=== PATIENT | male | born 1975 | race Caucasian/White ===

== ENCOUNTER 2016-11-24 16:11 | Emergency (ER) | payer BC, OTHER ==
[~2016-11-24] VITALS: Ht 172.7 cm; Wt 112.0 kg
[~2016-11-24 16:11] MED LIST: CLON0.5T PO; DEXT30TA2 PO; FURO-69 PO; OMEP2.5S PO; TEST200V3 IM; VILA10TA PO
[2016-11-24] MEDS ORDERED: PHEN1CPM PO (16:37)
[2016-11-24] MEDS ORDERED: RIZA10TA PO (16:37)
[2016-11-24] MEDS ORDERED: IV NORMAL SALINE 1000ML BAG 1,000 ML IV ONE (17:45)
[2016-11-24] MEDS ORDERED: METOCLOPRAMIDE HCL 10 MG/2 ML VIAL. IV ONE ×2 (17:45→20:15)
[2016-11-24] MEDS ORDERED: DIPHENHYDRAMINE 50 MG/ML VIAL IVP ONE ×2 (17:45→20:15)
[2016-11-24 18:02] LABS: BASO # 0.1 x10^3/uL (0.0-0.2); BASO % 1 % (0-3); EOS % 1 % (0-3); HEMATOCRIT 43.4 % (39.0-53.0); HEMOGLOBIN 14.9 g/dL (13.0-17.5); LYMPH # 2.1 x10^3/uL (1.0-4.8); LYMPH % 27 % (24-48); MEAN CORPUSCULAR HEMOGLOBIN 31 pg (25-35); MEAN CORPUSCULAR HGB CONC 34 g/dL (31-37); MEAN CORPUSCULAR VOLUME 90 fL (79-100); MONO % 9 % (0-9); NEUT % 63 % (31-73); PLATELET COUNT 195 x10^3/uL (140-400); RED BLOOD COUNT 4.85 x10^6/uL (4.30-5.70); RED CELL DISTRIBUTION WIDTH 13.5 % (11.5-14.5); WHITE BLOOD COUNT 7.7 x10^3/uL (4.0-11.0)
[2016-11-24 18:15] VITALS: BP 120/76
[2016-11-24 18:16] LABS: CALCIUM 8.9 mg/dL (8.5-10.1); CREATININE 1.1 mg/dL (0.7-1.3); GFR 73.1; POTASSIUM 4.1 mmol/L (3.5-5.1)
--- NOTE | 2016-11-24 18:26 | RAD ---
PROCEDURE CT Head without contrast. HISTORY Migraine headaches with nausea, vomiting, and diarrhea, symptoms for [address] head was obtained. One or more of the following individualized dose reduction techniques were utilized for this exam: 1. Automated exposure control. 2. Adjustment of the mA and/or kV according to patient's size. 3. Use of iterative reconstruction technique. COMPARISON August 14, 2014. FINDINGS Ventricles and sulci are within normal limits for age. There is no acute intracranial hemorrhage or extra-axial fluid collection. Extra-axial calcification overlying the left frontal lobe could represent small calcified meningioma, stable. This could also represent some dural calcification. It measures 11 by 7 millimeters. There is no evidence of an acute infarct. There is no depressed skull fracture. There is right sphenoid mucosal thickening. IMPRESSION No acute intracranial findings. Electronically signed by: Gilbert Gan MD (Nov 24, 2016 18:24:48)
[2016-11-24] MEDS ORDERED: CONTRAST GIVEN MC PRN (19:15)
[2016-11-24] MEDS ORDERED: IOHEXOL 350 MG/ML 100ML VIAL. IV ONE (19:15)
--- NOTE | 2016-11-24 19:17 | PHYS DOC ---
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 His headache is sharp severe. He has a history of migraines and has been having initially similar symptoms which progressed into severe headache. It was not sudden in onset. He denies changes in vision or weakness or numbness unilaterally. It is worse with light and noise. It is improved by rest and silence. It is nonradiating. For approximately 24 hours his headache was exactly the same as his migraine headaches. Review of systems is negative for chest pain shortness of breath nausea vomiting fevers or chills. He denies numbness weakness or tingling. All other review of systems is negative unless otherwise noted in history of present illness. Review of Systems Review of Systems SEE ABOVE. Current Medications Current Medications Current Medications Medications (Trade) Dose Ordered Sig/Reynaldo Start Time Stop Time Status Last Admin Dose Admin Diphenhydramine HCl 25 mg 25 mg 1X ONCE 11/24/16 20:15 11/24/16 20:16 DC 11/24/16 20:11 25 MG Diphenhydramine HCl 50 mg 50 mg 1X ONCE 11/24/16 17:45 11/24/16 17:46 DC 11/24/16 17:53 50 MG Info (Do NOT chart on this entry -- for MONITORING) 1 each PRN DAILY PRN 11/24/16 19:15 11/24/16 21:00 DC Iohexol (Omnipaque 350 Mg/ml) 95 ml 1X ONCE 11/24/16 19:15 11/24/16 19:16 DC 11/24/16 19:28 95 ML Metoclopramide HCl (Reglan) 10 mg 1X ONCE 11/24/16 20:15 11/24/16 20:16 DC 11/24/16 20:11 10 MG Sodium Chloride (Iv Sodium Chloride 0.9% 500ml Bag) 500 ml @ 500 mls/hr 1X ONCE 11/24/16 20:15 11/24/16 21:00 DC 11/24/16 20:10 500 MLS/HR Sodium Chloride (Iv Sodium Chloride 0.9% 1000ml Bag) 1,000 ml @ 1,000 mls/hr 1X ONCE 11/24/16 17:45 11/24/16 18:44 DC 11/24/16 17:49 1,000 MLS/HR Allergies Allergies Allergies Coded Allergies Type Severity Reaction Last Updated Verified No Known Drug Allergies 11/24/16 No Physical Exam Physical Exam Constitutional: Well developed, well nourished, no acute distress, non-toxic appearance. [] HENT: Normocephalic, atraumatic, bilateral external ears normal, oropharynx moist, no oral exudates, nose normal. [] Eyes: PERRLA, EOMI, conjunctiva normal, no discharge. [] Neck: Normal range of motion, no tenderness, supple, no stridor. [] Cardiovascular:Heart rate regular rhythm, no murmur [] Lungs & Thorax: Bilateral breath sounds clear to auscultation [] Abdomen: Bowel sounds normal, soft, no tenderness, no masses, no pulsatile masses. [] Skin: Warm, dry, no erythema, no rash. [] Back: No tenderness, no CVA tenderness. [] Extremities: No tenderness, no cyanosis, no clubbing, ROM intact, no edema. [] Neurologic: Alert and oriented X 3, normal motor function, normal sensory function, no focal deficits noted. [] Psychologic: Affect normal, judgement normal, mood normal. [] Current Patient Data Vital Signs Vital Signs Date Time Temp Pulse Resp B/P Pulse Ox O2 Delivery O2 Flow Rate FiO2 11/24/16 18:15 81 120/76 98 11/24/16 16:26 98.1 20 Room Air 98.1 Lab Values Laboratory Tests Test 11/24/16 17:46 White Blood Count 7.7x10^3/uL (4.0-11.0) Red Blood Count 4.85x10^6/uL (4.30-5.70) Hemoglobin 14.9g/dL (13.0-17.5) Hematocrit 43.4% (39.0-53.0) Mean Corpuscular Volume 90fL (79-100) Mean Corpuscular Hemoglobin 31pg (25-35) Mean Corpuscular Hemoglobin Concent 34g/dL (31-37) Red Cell Distribution Width 13.5% (11.5-14.5) Platelet Count 195x10^3/uL (140-400) Neutrophils (%) (Auto) 63% (31-73) Lymphocytes (%) (Auto) 27% (24-48) Monocytes (%) (Auto) 9% (0-9) Eosinophils (%) (Auto) 1% (0-3) Basophils (%) (Auto) 1% (0-3) Neutrophils # (Auto) 4.8x10^3uL (1.8-7.7) Lymphocytes # (Auto) 2.1x10^3/uL (1.0-4.8) Monocytes # (Auto) 0.7x10^3/uL (0.0-1.1) Eosinophils # (Auto) 0.1x10^3/uL (0.0-0.7) Basophils # (Auto) 0.1x10^3/uL (0.0-0.2) Sodium Level 143mmol/L (136-145) Potassium Level 4.1mmol/L (3.5-5.1) Chloride Level 104mmol/L (98-107) Carbon Dioxide Level 32mmol/L (21-32) Anion Gap 7 (6-14) Blood Urea Nitrogen 18mg/dL (8-26) Creatinine 1.1mg/dL (0.7-1.3) Estimated GFR (Cockcroft-Gault) 73.1 Glucose Level 142mg/dL (70-99) H Calcium Level 8.9mg/dL (8.5-10.1) Laboratory Tests 11/24/16 17:46 Laboratory Tests 11/24/16 17:46 EKG EKG [] Radiology/Procedures Radiology/Procedures [] Course & Med Decision Making Course & Med Decision Making Pertinent Labs and Imaging studies reviewed. (See chart for details) [] 41-year-old male complaining of a headache today. He reported this headache was mildly different than his previous. It started out there is similar to his previous however over 24 hours progressed into a slightly different headache. IV established. Vital signs afebrile. Pertinent physical exam no meningeal symptoms. No focal neuro deficit present. Reglan and Benadryl along with fluids given which improved the patient's symptoms significantly. Head CT negative. CT angiography shows no evidence of aneurysm. I offered lumbar puncture to the patient which he respectfully declined. Patient was subsequent discharged home to follow up with PCP for further evaluation workup and care on an outpatient basis. Dragon Disclaimer Dragon Disclaimer This electronic medical record was generated, in whole or in part, using a voice recognition dictation system. Departure Departure Impression: Primary Impression: Other headache syndrome Disposition: HOME, SELF-CARE Condition: STABLE Referrals: THOMAS MUNOZ PA-C (PCP) Patient Instructions: General Headache Without Cause Additional Instructions: Thank you for allowing us to participate in your care today. Followup with your primary care physician in 3 days if your symptoms do not improve. If you do not have a primary care provider you can ask for a list of our primary care providers. Return to the emergency department you have any new or concerning findings. This should be evaluated by the primary care physician and any necessary consulting services for continued management within a few days after discharge. Return to emergency room if you have any new or concerning symptoms including but not limited to fever, chills, nausea, vomiting, intractable pain, any new rashes, chest pain, shortness of air, uncontrolled bleeding, difficulty breathing, and/or vision loss. MARIELENA VALDEZ MD Nov 24, 2016 19:17
--- NOTE | 2016-11-24 19:58 | RAD ---
PROCEDURE CT angiogram head and neck IMPRESSION Preliminary report only. Unable to send all images. Full report in morning. 1. No significant common or internal carotid artery stenosis. Tortuosity of the internal carotid arteries. 2. Right dominant vertebral artery. Left vertebral artery diminutive, does supply the basilar. 3. No intracranial stenosis or aneurysm. Hypoplastic right A1 segment. Electronically signed by: Gilbert Gan MD (Nov 24, 2016 19:56:41)
[2016-11-24] MEDS ORDERED: IV NORMAL SALINE 500ML BAG 500 ML IV ONE (20:15)
== END 2016-11-24 21:00 | disposition home or self-care (01) ==
LOC: ER 16:11
DX: G44.89 Other headache syndrome (principal); I10 Essential (primary) hypertension; G43.909 Migraine, unspecified, not intractable, without status migrainosus
CPT/HCPCS: 36415; 70450; 70496; 70498; 80048; 85027; 96361; 96374; 96375; 96376; 99285; J1200; J2765; J7030; J7040; Q9967

== ENCOUNTER 2016-12-04 16:10 | Emergency (ER) | payer OTHER ==
[~2016-12-04] VITALS: Ht 172.7 cm; Wt 111.1 kg
[~2016-12-04 16:10] MED LIST changes: +PHEN1CPM PO; +RIZA10TA PO
[2016-12-04] MEDS ORDERED: KETOROLAC TROMETHAMINE 30 MG/ML SYRINGE. IV ONE (17:30)
[2016-12-04] MEDS ORDERED: SUMATRIPTAN 6 MG/0.5 ML VIAL. SQ ONE (17:30)
[2016-12-04] MEDS ORDERED: IV NORMAL SALINE 1000ML BAG 1,000 ML IV ONE (17:30)
[2016-12-04] MEDS ORDERED: METOCLOPRAMIDE HCL 10 MG/2 ML VIAL. IV ONE (17:30)
[2016-12-04] MEDS ORDERED: methylPREDNISolone SOD SUCC PF 125 MG/2 ML VIAL. IV ONE (17:30)
--- NOTE | 2016-12-04 17:34 | PHYS DOC ---
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 Patient was seen in this emergency room in 10 days ago for a headache and received Reglan and Benadryl for treatment. Patient had moderate relief with those medications but left due to increased anxiety. Patient states he's had this same headache persistent since his last ED visit with no episodes of resolution. Patient denies any fevers or chills. Positive photophobia. No neck stiffness. Mild nausea. Patient has a 10 year history of headaches and has been worked up by a neurologist and has had multiple MRIs related to his headaches. Patient has a known pituitary tumor that is being followed by serial MRIs. No history of head trauma. Patient states last June he had his gallbladder removed and following that his headache medications were modified. Review of Systems Review of Systems Constitutional: Denies fever or chills Eyes: Denies change in visual acuity, redness, or eye pain HENT: Denies nasal congestion or sore throat Respiratory: Denies cough or shortness of breath Cardiovascular: No chest pain or palpitations GI: Denies abdominal pain, bloody stools or diarrhea. Positive nausea, vomiting, : Denies dysuria or hematuria Musculoskeletal: Denies back pain or joint pain Integument: Denies rash or skin lesions Neurologic: Denies focal weakness or sensory changes . Positive headache, Endocrine: Denies polyuria or polydipsia Current Medications Current Medications Current Medications Medications (Trade) Dose Ordered Sig/Reynaldo Start Time Stop Time Status Last Admin Dose Admin Ketorolac Tromethamine (Toradol) 30 mg 1X ONCE 12/04/16 17:30 12/04/16 17:33 DC 12/04/16 17:44 30 MG Methylprednisolone Sodium Succinate (Solu-Medrol 125mg Vial) 125 mg 1X ONCE 12/04/16 17:30 12/04/16 17:33 DC 12/04/16 17:46 125 MG Metoclopramide HCl (Reglan) 10 mg 1X ONCE 12/04/16 17:30 12/04/16 17:33 DC 3/30/17 17:48 10 MG Sodium Chloride (Iv Sodium Chloride 0.9% 1000ml Bag) 1,000 ml @ 1,000 mls/hr 1X ONCE 12/04/16 17:30 12/04/16 18:29 DC 12/04/16 17:42 1,000 MLS/HR Sumatriptan Succinate 6 mg 6 mg 1X ONCE 12/04/16 17:30 12/04/16 17:33 DC 12/04/16 17:53 6 MG Allergies Allergies Allergies Coded Allergies Type Severity Reaction Last Updated Verified No Known Drug Allergies 11/24/16 No Physical Exam Physical Exam Constitutional: Well developed, well nourished, mild acute distress, non-toxic appearance. HENT: Normocephalic, atraumatic, oropharynx moist, no oral exudates, nose normal. Eyes: PERRLA, EOMI, conjunctiva normal, no discharge. Normal funduscopic exam Neck: Normal range of motion, no tenderness, supple, no stridor. Cardiovascular:Heart rate regular rhythm, no murmur Lungs & Thorax: Bilateral breath sounds clear to auscultation Abdomen: Bowel sounds normal, soft, no tenderness, no masses, no pulsatile masses. Skin: Warm, dry, no erythema, no rash. Extremities: No tenderness, no cyanosis, no edema. Neurologic: Alert and oriented X 3, normal motor function, normal sensory function, no focal deficits noted. Psychologic: Affect normal, judgement normal, mood normal. Current Patient Data Vital Signs Vital Signs Date Time Temp Pulse Resp B/P Pulse Ox O2 Delivery O2 Flow Rate FiO2 12/04/16 19:00 86 21 117/84 92 Room Air 12/04/16 16:32 97.9 97.9 EKG EKG [] Radiology/Procedures Radiology/Procedures [] Course & Med Decision Making Course & Med Decision Making Pertinent Labs and Imaging studies reviewed. (See chart for details) [] Dragon Disclaimer Dragon Disclaimer This electronic medical record was generated, in whole or in part, using a voice recognition dictation system. Departure Departure Impression: Primary Impression: Migraine Disposition: 01 HOME, SELF-CARE Condition: IMPROVED Referrals: THOMAS MUNOZ PA-C (PCP) Patient Instructions: Migraine Headache Scripts Ketorolac Tromethamine 10 Mg Tablet1 Tab PO TID #15 TAB Prov:COLARIC,YENNI B MD 12/04/16 Problem Qualifiers Primary Impression: Migraine Migraine type: without aura Status migrainosus presence: without status migrainosus Intractability: not intractable Qualified Code: G43.009 - Migraine without aura, not intractable, without status migrainosus YENNI ROSENTHAL MD Dec 04, 2016 17:34
[2016-12-04] MEDS ORDERED: KETO10TA PO (18:53)
[2016-12-04 19:00] VITALS: BP 117/84
== END 2016-12-04 19:06 | disposition home or self-care (01) ==
LOC: ER 16:10
DX: G43.909 Migraine, unspecified, not intractable, without status migrainosus (principal); I10 Essential (primary) hypertension; F41.9 Anxiety disorder, unspecified
CPT/HCPCS: 96361; 96372; 96374; 96375; 99284; J1885; J2765; J2930; J3030; J7030

== ENCOUNTER → 2017-02-03 | Outpatient (CLI) | payer OTHER ==
[~2017-02-03] MED LIST changes: +GADOBUTROL 10 MMOL/10 ML VIAL IV ONE; +KETO10TA PO
--- NOTE | 2017-02-03 11:31 | RAD ---
EXAM: Brain and pituitary MRI with and without contrast. HISTORY: Pituitary tumor follow-up. Headaches. TECHNIQUE: Multiplanar, multisequence magnetic resonance imaging of the brain pituitary was performed prior to and following the administration of 10 cc Gadavist intravenous contrast. COMPARISON: 11/24/2016. FINDINGS: The exam is limited due to motion. There is no restricted diffusion to suggest acute or subacute infarction. There is no susceptibility effect to suggest hemorrhage. There is no mass effect or midline shift. There is no hydrocephalus. No suspicious white matter lesion is seen. The orbits, paranasal sinuses and mastoid air cells are unremarkable. There is a hypoplastic distal left vertebral artery. There is an enhancing dural based lesion within the ventral suprasellar space. This measures 9 mm craniocaudally by 6 mm anteroposteriorly by 9 mm transversely. The sella is normal in size. No pituitary parenchymal lesion is seen. The infundibulum is normal in caliber and position. There is no clear deviation of the optic chiasm. No additional enhancing lesion is seen. IMPRESSION: 1. 9 x 9 x 6 mm enhancing dural based lesion within the ventral suprasellar region. The location and configuration of this lesion favors a meningioma rather than adenoma. This has been reportedly described on prior imaging studies. However, no prior MRIs available to assess for interval change. An addendum to this report can be submitted if the prior study becomes available. 2. Otherwise, unremarkable brain MRI. The exam is slightly limited due to motion. Electronically signed by: Ronel Marcano MD (02/03/2017 11:28 AM)
== END | disposition home or self-care (01) ==
LOC: MRI 09:42
PROVIDERS: ATTEND Physician Assistant Medical
DX: D32.0 Benign neoplasm of cerebral meninges (principal)
CPT/HCPCS: 70553; A9585

== ENCOUNTER → 2017-02-04 | Outpatient (CLI) | payer OTHER ==
[~2017-02-04] MED LIST changes: -GADOBUTROL 10 MMOL/10 ML VIAL IV ONE
--- NOTE | 2017-02-04 14:54 | KCIC ---
MRI study of the right shoulder without contrast Clinical indications: Right shoulder pain and decreased range of motion. History of injury in May 2016 and again a few days ago throwing a baseball. No surgical history in this area. TECHNIQUE: Noncontrast MRI sequences of the right shoulder were performed in all 3 planes. FINDINGS: There is increased signal within the supraspinatus tendon and infraspinatus tendon consistent with tendinosis. No complete rotator cuff tear is seen. There is a high-grade partial articular surface tear of the anterior aspect of the lateral portion of the supraspinatus tendon at it's attachment to the footplate of the greater tubercle. There is no fluid within the subacromial or subdeltoid bursa. The subscapularis tendon and transverse ligament are intact. The tendon of the long head of the biceps is intact. No muscle atrophy is seen. There is mild bone marrow edema around the AC joint consistent with mild primary degenerative osteoarthritis and there is mild spurring of this joint compartment. A type III acromial process is seen. These findings may impinge the acromial humeral space. There is mild chronic cystic change of the posterior lateral aspect of the humeral head secondary to chronic impingement. No bone contusion or marrow infiltrative process or fracture is seen. There is mild primary degenerative osteoarthritis of the glenohumeral joint. Small joint effusion is seen. The glenoid labrum is intact and no paralabral ganglion cyst or spinoglenoid notch ganglion cyst is seen. IMPRESSION: High-grade partial articular surface tear of the supraspinatus tendon at the footplate attachment of the greater tubercle. Impingement of the acromial humeral space as discussed above. No subdeltoid or subacromial bursitis is seen. Electronically signed by: James Jaimes MD (02/04/2017 2:51 PM)
== END | disposition home or self-care (01) ==
LOC: KCIC MRI 13:11
PROVIDERS: ATTEND Physician Assistant Medical
DX: S46.001A Unspecified injury of muscle(s) and tendon(s) of the rotator cuff of right shoulder, initial encounter (principal); X58.XXXA Exposure to other specified factors, initial encounter; Y93.89 Activity, other specified; Y92.89 Other specified places as the place of occurrence of the external cause; Y99.8 Other external cause status
CPT/HCPCS: 73221

== ENCOUNTER 2017-02-13 18:56 | Emergency (ER) | payer OTHER ==
[~2017-02-13] VITALS: Ht 170.2 cm; Wt 112.0 kg
--- NOTE | 2017-02-13 19:14 | PHYS DOC ---
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 He states he has a rotator cuff injuries following up with a surgeon but his primary care physician we'll give him any pain meds. He states that the MRI that he brought with him shows a tear on the pains began worse after he reinjured it a few days ago on the ball with his son. He has a complains of a migraine headache of which he takes sumatriptan for that's been getting worse. He states he had an MRI that shows a he has a lesion on his brain. He brings both of these reports of the MRIs with him. They were just done on February 04, 2017. He states he's been feeling nauseated and his headache for last 4 days. He states this is typical headache he does have some visual changes on the right lateral aspect of his eye and sensitivity to light that's also been going on for over the last 4 days. He denies any vomiting, fevers, neck stiffness. He states he's been here before for this migraine and he had Reglan and Benadryl which he did not tolerate well. He states he has anxiety and claustrophobia and seems a Reglan made it worse. Review of Systems Review of Systems Constitutional: Denies fever or chills [] Eyes: Denies change in visual acuity, redness, or eye pain [] HENT: Denies nasal congestion or sore throat [] Respiratory: Denies cough or shortness of breath [] Cardiovascular: No additional information not addressed in HPI [] GI: Denies abdominal pain, nausea, vomiting, bloody stools or diarrhea [] : Denies dysuria or hematuria [] Musculoskeletal: Denies back pain, positive for joint pain [] Integument: Denies rash or skin lesions [] Neurologic: Denies focal weakness or sensory changes, positive for headache. Endocrine: Denies polyuria or polydipsia [] Current Medications Current Medications Current Medications Medications (Trade) Dose Ordered Sig/Reynaldo Start Time Stop Time Status Last Admin Dose Admin Diphenhydramine HCl (Benadryl) 25 mg 1X ONCE 02/13/17 19:45 02/13/17 19:46 DC 02/13/17 20:16 25 MG Ketorolac Tromethamine (Toradol) 30 mg 1X ONCE 02/13/17 20:45 02/13/17 20:46 DC 02/13/17 21:10 30 MG Promethazine HCl 25 mg/Sodium Chloride 51 ml @ 101 mls/hr 1X ONCE 02/13/17 19:45 02/13/17 20:15 DC 02/13/17 20:15 101 MLS/HR Sodium Chloride 1,000 ml @ 1,000 mls/hr 1X ONCE 02/13/17 19:45 02/13/17 20:44 DC 02/13/17 20:15 1,000 MLS/HR Allergies Allergies Allergies Coded Allergies Type Severity Reaction Last Updated Verified No Known Drug Allergies 11/24/16 No Physical Exam Physical Exam Constitutional: Well developed, well nourished, no acute distress, non-toxic appearance. [] HENT: Normocephalic, atraumatic, bilateral external ears normal, oropharynx moist, no oral exudates, nose normal. [] Eyes: PERRLA, EOMI, conjunctiva normal, no discharge. [] Neck: Normal range of motion, no tenderness, supple, no stridor. [] Cardiovascular:Heart rate regular rhythm, no murmur [] Lungs & Thorax: Bilateral breath sounds clear to auscultation [] Abdomen: Bowel sounds normal, soft, no tenderness, no masses, no pulsatile masses. [] Skin: Warm, dry, no erythema, no rash. [] Back: No tenderness, no CVA tenderness. [] Extremities: No tenderness, no cyanosis, no clubbing, ROM intact, no edema. [] Neurologic: Alert and oriented X 3, normal motor function, normal sensory function, no focal deficits noted. [] Psychologic: Affect normal, judgement normal, mood normal. [] Current Patient Data Vital Signs Vital Signs Date Time Temp Pulse Resp B/P (MAP) Pulse Ox O2 Delivery O2 Flow Rate FiO2 02/13/17 21:53 60 16 120/75 (90) 97 02/13/17 19:14 98.3 Room Air 98.3 EKG EKG [] Radiology/Procedures Radiology/Procedures [] Impressions: Migraine headache Right shoulder pain Course & Med Decision Making Course & Med Decision Making Pertinent Labs and Imaging studies reviewed. (See chart for details) Patient is being checked out to Dr. Noriega in stable condition this time. Final disposition to Dr. Noriega. Marielena Noriega MD documentation: 41 yo M presented to the ED with a headache. Pts triage vital signs, afebrile. nl hr. has a normal neurologic exam on my examination. The patient was signed out to me to finish his IV fluids and pain medication with likely discharge. Patient does not have neck stiffness or meningeal signs. Negative Brudzinski sign. Negative Kernig sign. Neuro exam: Mental status: Awake oriented and alert x3 Cranial nerves: Extraocular movements intact, eyebrows harry bilaterally smile symmetric, uvula elevation, shoulder shrug intact, tongue protrusion normal Sensation: equal and normal in all extremities Strength: 5/5 in upper and lower extremities bilaterally On reexamination, the patient's pain and improved. The patient was then discharged home to follow-up with PCP in 2-3 days. The patient was then discharged home in stable condition to follow up with their primary care physician over the next 2-3 days. They were to return if their symptoms worsened or if they were concerned for any reason. [id number] discharge instructions and return precautions were given. Patient's questions were answered to their satisfaction. The patient does have an MRI of his brain that shows a possible meningioma. I recommended he follow up with her neurologist within the next 4-7 days for further evaluation of this finding. During the discharge process, the patient became upset because he was desiring opioid medications for his headache. I politely explained to him that I do not use opioid medications for headache as they worsen patient's headache in a large proportion of patients. He became very angry and verbally abusive with staff and had to be escorted by security out of the emergency department. Yueon Disclaimer Dragon Disclaimer This electronic medical record was generated, in whole or in part, using a voice recognition dictation system. Departure Departure Impression: Primary Impression: Other headache syndrome Disposition: HOME, SELF-CARE Condition: STABLE Referrals: THOMAS MUNOZ PA-C (PCP) Patient Instructions: General Headache Without Cause, [id number] Additional Instructions: Thank you for allowing us to participate in your care today. Followup with your primary care physician in 3 days if your symptoms do not improve. If you do not have a primary care provider you can ask for a list of our primary care providers. Return to the emergency department you have any new or concerning findings. This should be evaluated by the primary care physician and any necessary consulting services for continued management within a few days after discharge. Return to emergency room if you have any new or concerning symptoms including but not limited to fever, chills, nausea, vomiting, intractable pain, any new rashes, chest pain, shortness of air, uncontrolled bleeding, difficulty breathing, and/or vision loss. RACIEL BOYD MD Feb 13, 2017 19:14 MARIELENA NORIEGA MD Feb 13, 2017 21:26
[2017-02-13] MEDS ORDERED: PROMETHAZINE 25 MG in IV NORMAL SALINE 50ML 50 ML IV ONE (19:45)
[2017-02-13] MEDS ORDERED: diphenhydrAMINE 50 MG/ML VIAL IVP ONE (19:45)
[2017-02-13] MEDS ORDERED: IV NORMAL SALINE 1000ML BAG 1,000 ML IV ONE (19:45)
[2017-02-13] MEDS ORDERED: KETOROLAC TROMETHAMINE 30 MG/ML INJ. IV ONE (20:45)
[2017-02-13 21:53] VITALS: BP 120/75
== END 2017-02-13 21:57 | disposition home or self-care (01) ==
LOC: ER 18:56
DX: G44.89 Other headache syndrome (principal); M25.511 Pain in right shoulder; I10 Essential (primary) hypertension; Z90.49 Acquired absence of other specified parts of digestive tract; G43.909 Migraine, unspecified, not intractable, without status migrainosus
CPT/HCPCS: 96365; 96375; 99284; J1200; J1885; J2550; J7030

== ENCOUNTER → 2018-01-13 | Outpatient (CLI) | payer OTHER | END | disposition home or self-care (01) | LOC: KCIC 13:43 | DX: R05 Cough (principal) | CPT/HCPCS: 71046 ==

== ENCOUNTER → 2018-02-19 | Outpatient (CLI) | payer OTHER | END | disposition home or self-care (01) | LOC: NM 09:16 | DX: K30 Functional dyspepsia (principal) | CPT/HCPCS: 78264; A9541 ==

== ENCOUNTER → 2018-05-04 | Outpatient (CLI) | payer OTHER ==
[2018-01-20 11:00] VITALS: BP 120/83
[~2018-05-04] MED LIST changes: +AMOX1TAB61 PO; +AZIT250T6 PO; +BUSP10TA PO; +BUTA1CAP31 PO; +CELE200C PO; +COLE1TAB2 PO; +CONTRAST GIVEN. MC PRN; +CYCL10TA2 PO; +DICY20TA3 PO; +DULA0.75 SQ; +DULO60CA6 PO; +ESOM40CA PO; +GABA-586 PO; +HYDR-971 PO; +IOHEXOL 300 MG/ML 100ML VIAL. IV ONE; +IOPAMIDOL 370 76% 100 ML VIAL. IV ONE; -OMEP2.5S PO; +OMEP2.5S2 PO; +POTA10TA12 PO; +PRAZ1CAP2 PO; +PROP20TA PO; +SUCR1TAB PO; +TOPI100T8 PO; +TRAZ-86 PO
--- NOTE | 2018-05-04 09:25 | KCIC ---
CT pelvis with contrast dated 05/04/2018. Comparison made to 11/24/2017. CLINICAL INDICATION: Bilateral inguinal pain. TECHNIQUE: Contiguous axial imaging the pelvis performed following the intravenous administration of 95 cc Omnipaque 300. One or more of the following individualized dose reduction techniques were utilized for this examination: 1. Automated exposure control 2. Adjustment of the mA and/or kV according to patient size 3. Use of iterative reconstruction technique. FINDINGS: There is some fatty dilation of the bilateral inguinal ring, unchanged from prior study. No definite hernia defect. There are couple nonpathologically enlarged lymph nodes in the bilateral external iliac chain and bilateral inguinal region, similar to prior study. The vasculature at the bilateral groin are patent. Minimal scattered atherosclerotic calcifications. Urinary bladder is nondistended. Prostate gland normal in size. No free pelvic fluid. Distal GI tract unremarkable. Bone windows show no acute findings. IMPRESSION: No acute abnormality pelvis. Electronically signed by: Chris Loera MD (05/04/2018 9:22 AM) [facility]
== END | disposition home or self-care (01) ==
LOC: KCIC CT 08:17
PROVIDERS: ATTEND Surgery
DX: I70.0 Atherosclerosis of aorta (principal); I10 Essential (primary) hypertension; G43.909 Migraine, unspecified, not intractable, without status migrainosus; E11.9 Type 2 diabetes mellitus without complications; K21.9 Gastro-esophageal reflux disease without esophagitis; J45.909 Unspecified asthma, uncomplicated; R60.0 Localized edema; Z90.49 Acquired absence of other specified parts of digestive tract; Z82.49 Family history of ischemic heart disease and other diseases of the circulatory system; Z82.0 Family history of epilepsy and other diseases of the nervous system; Z83.3 Family history of diabetes mellitus; Z82.5 Family history of asthma and other chronic lower respiratory diseases
CPT/HCPCS: 72193; 82565; Q9967

== ENCOUNTER 2021-05-07 16:03 | Observation (INO) | payer OTHER ==
[~2021-05-07] VITALS: Ht 170.2 cm; Wt 105.3 kg
[~2021-05-07 16:03] MED LIST changes: -CONTRAST GIVEN. MC PRN; -GABA-586 PO; +GABA300C18 PO; +HYDR-3164 PO; -HYDR-971 PO; -IOHEXOL 300 MG/ML 100ML VIAL. IV ONE; -IOPAMIDOL 370 76% 100 ML VIAL. IV ONE; +TRAZ-123 PO; -TRAZ-86 PO
[2021-05-07] MEDS ORDERED: ASPIRIN CHEWABLE 81 MG TABLET. PO ONE (16:30)
--- NOTE | 2021-05-07 16:35 | ED.ADGEN ---
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 Patient states last night however his pain became significantly worse. He describes the sensation of an elephant sitting on his chest. Patient reports he was doing some laundry and when doing so he felt extreme and chest discomfort as well as lightheaded. Patient states during this time as well he is become more fatigued with any kind of exertion. Patient visited with his primary care physician today and was referred to the emergency department for further evaluation. Despite this, the patient denies any nausea or fevers. He further denies any history of cough or shortness of air at rest. Patient states he has not had the coronavirus vaccination series. He is awake, alert and nontoxic- appearing. Review of Systems: Review of Systems: Constitutional: Denies fever or chills. [] Eyes: Denies change in visual acuity. [] HENT: Denies nasal congestion or sore throat. [] Respiratory: Denies cough or shortness of breath. [] Cardiovascular: Reports chest pain as well as dyspnea with exertion. [] GI: Denies abdominal pain, nausea, vomiting, bloody stools or diarrhea. [] : Denies dysuria. [] Musculoskeletal: Denies back pain or joint pain. [] Integument: Denies rash. [] Neurologic: Denies headache, focal weakness or sensory changes. [] Endocrine: Denies polyuria or polydipsia. [] Lymphatic: Denies swollen glands. [] Psychiatric: Denies depression or anxiety. [] Current Medications: Current Medications Medications (Trade) Dose Ordered Sig/Reynaldo Start Time Stop Time Status Last Admin Dose Admin Aspirin (Aspirin Chewable) 324 mg 1X ONCE 05/07/21 16:30 05/07/21 16:31 DC 05/07/21 16:47 324 MG Info (CONTRAST GIVEN -- Rx MONITORING) 1 each PRN DAILY PRN 05/07/21 18:00 05/09/21 17:59 Iohexol (Omnipaque 350 Mg/ml) 100 ml 1X ONCE 05/07/21 17:45 05/07/21 17:48 DC 05/07/21 17:48 100 ML Allergies: Allergies: Allergies Coded Allergies Type Severity Reaction Last Updated Verified sumatriptan Allergy Intermediate body pain 05/07/21 Yes morphine Allergy Mild itching 05/07/21 Yes ketorolac Allergy Unknown 05/07/21 Yes Physical Exam: PE: Constitutional: Well developed, well nourished, no acute distress, non-toxic appearance. [] HENT: Normocephalic, atraumatic, bilateral external ears normal, oropharynx moist, no oral exudates, nose normal. [] Eyes: PERRLA, EOMI, conjunctiva normal, no discharge. [] Neck: Normal range of motion, no tenderness, supple, no stridor. [] Cardiovascular:Heart rate regular rhythm, no murmur [] Lungs & Thorax: Bilateral breath sounds clear to auscultation [] Abdomen: Bowel sounds normal, soft, no tenderness, no masses, no pulsatile mass es. [] Skin: Warm, dry, no erythema, no rash. [] Back: No tenderness, no CVA tenderness. [] Extremities: No tenderness, no cyanosis, no clubbing, ROM intact, no edema. [] Neurologic: Alert and oriented X 3, normal motor function, normal sensory function, no focal deficits noted. [] Psychologic: Affect normal, judgement normal, mood normal. [] Current Patient Data: Labs: Laboratory Tests Test 05/07/21 17:05 White Blood Count 6.2 x10^3/uL (4.0-11.0) Red Blood Count 5.16 x10^6/uL (4.30-5.70) Hemoglobin 16.1 g/dL (13.0-17.5) Hematocrit 46.4 % (39.0-53.0) Mean Corpuscular Volume 90 fL (79-100) Mean Corpuscular Hemoglobin 31 pg (25-35) Mean Corpuscular Hemoglobin Concent 35 g/dL (31-37) Red Cell Distribution Width 13.1 % (11.5-14.5) Platelet Count 153 x10^3/uL (140-400) Neutrophils (%) (Auto) 59 % (31-73) Lymphocytes (%) (Auto) 29 % (24-48) Monocytes (%) (Auto) 8 % (0-9) Eosinophils (%) (Auto) 3 % (0-3) Basophils (%) (Auto) 1 % (0-3) Neutrophils # (Auto) 3.7 x10^3/uL (1.8-7.7) Lymphocytes # (Auto) 1.8 x10^3/uL (1.0-4.8) Monocytes # (Auto) 0.5 x10^3/uL (0.0-1.1) Eosinophils # (Auto) 0.2 x10^3/uL (0.0-0.7) Basophils # (Auto) 0.1 x10^3/uL (0.0-0.2) Sodium Level 139 mmol/L (136-145) Potassium Level 4.0 mmol/L (3.5-5.1) Chloride Level 102 mmol/L (98-107) Carbon Dioxide Level 26 mmol/L (21-32) Anion Gap 11 (6-14) Blood Urea Nitrogen 12 mg/dL (8-26) Creatinine 1.0 mg/dL (0.7-1.3) Estimated GFR (Cockcroft-Gault) 80.1 BUN/Creatinine Ratio 12 (6-20) Glucose Level 293 mg/dL (70-99) H Calcium Level 9.3 mg/dL (8.5-10.1) Total Bilirubin 0.7 mg/dL (0.2-1.0) Aspartate Amino Transferase (AST) 9 U/L (15-37) L Alanine Aminotransferase (ALT) 25 U/L (16-63) Alkaline Phosphatase 84 U/L (46-116) Troponin I Quantitative < 0.017 ng/mL (0.000-0.055) MW-Elo-F-Type Natriuretic Peptide 21 pg/mL (0-124) Total Protein 6.6 g/dL (6.4-8.2) Albumin 3.6 g/dL (3.4-5.0) Albumin/Globulin Ratio 1.2 (1.0-1.7) Lipase 66 U/L (73-393) L Laboratory Tests 05/07/21 17:05 Laboratory Tests 05/07/21 17:05 Vital Signs: Vital Signs Date Time Temp Pulse Resp B/P (MAP) Pulse Ox O2 Delivery O2 Flow Rate FiO2 05/07/21 16:12 98.4 68 16 128/70 (95) 95 Room Air 98.4 EKG: EKG: EKG was obtained 1614 hrs. revealed a normal sinus rhythm with a ventricular rate of 74 bpm. There are no acute ST/T wave changes to denote ischemia. This is an otherwise normal EKG. Heart Score: C/O Chest Pain: Yes HEART Score for Chest Pain: HEART Score for Chest Pain Response (Comments) Value History Moderately Suspicious 1 ECG Normal 0 Age >45 - < 65 1 Risk Factors >3 Risk Factors or Hx CAD 2 Troponin < Normal Limit 0 Total 4 Risk Factors: Risk Factors: DM, Current or recent (<one month) smoker, HTN, HLP, family history of CAD, obesity. Risk Scores: Score 0 - 3: 2.5% MACE over next 6 weeks - Discharge Home Score 4 - 6: 20.3% MACE over next 6 weeks - Admit for Clinical Observation Score 7 - 10: 72.7% MACE over next 6 weeks - Early Invasive Strategies Radiology/Procedures: Radiology/Procedures: [] Impression: [facility] [address] [place], [place] [id number] IMAGING REPORT Signed PATIENT: GINA VALDEZ ACCOUNT: [id number] : 1975 LOCATION: ER AGE: 45 SEX: M EXAM STATUS: REG ER ORD. PHYSICIAN: JOSH JORDAN DO REASON: Pain PROCEDURE: PORTABLE CHEST 1V INDICATION: Reason: Pain / Spl. Instructions: / History: COMPARISON: January 2018 FINDINGS: Single view of chest obtained. Shunt coursing down the right side of the chest. Cardiac silhouette is similar to prior examination. There is some mild interstitial and groundglass opacities most prominent at the right lower lung IMPRESSION: * Mild interstitial and groundglass opacity most prominent at the right lower lung. Could be from causes such as interstitial infiltrate or asymmetric pulmonary vascular congestion. Electronically signed by: Stephani Carbajal MD (05/07/2021 4:58 PM) [id number] DICTATED and SIGNED BY: STEPHANI CARBAJAL MD DATE: 05/07/21 [id number] 0 Course & Med Decision Making: Course & Med Decision Making Pertinent Labs and Imaging studies reviewed. (See chart for details) The patient remains awake, alert and in no acute distress. I have reviewed the lab work as well as the imaging with the patient. The patient expresses concern about a possible blood clot with his ongoing breathing issues. As such a CT of the chest has been ordered to assess for the possibility of a pulmonary embolus. Additionally the patient is a person under investigation for coronavirus given that he has not had the vaccination nor will he take it. Currently the patient is awaiting CT imaging. Care will be transitioned to Dr. Lockhart for further management. update: Received this patient in signout. CTA was negative for pulmonary embolus. It did show a 2 mm Maulik nodule that I discussed with the patient. He does have a significant smoking history, so he is aware of the need for follow-up CT in 12 months. He is expressing a month of exertional chest pressure, but has recently had a lower threshold to cause pain. Is often relieved with rest. He has risk factors of DM, obesity, and smoking history. Fortunately, his troponin is negative, and his EKG is nonischemic. Calculate a heart score of 4. I discussed options of close outpatient follow-up for consideration of stress testing, but he states that it would be likely a month before he could see his doctor at the [facility]. I will discuss with cardiology and hospitalist about admission for further chest pain work-up. 1830 Mireya Disclaimer: Mireya Disclaimer: This electronic medical record was generated, in whole or in part, using a voice recognition dictation system. Departure Departure Impression: Primary Impression: Dyspnea on exertion Additional Impressions: Hyperglycemia due to diabetes mellitus Person under investigation for COVID-19 Exertional chest pain Disposition: ADMITTED INPATIENT Admitting Physician: TERELL ([place]) Condition: STABLE Referrals: THOMAS MUNOZ PA-C (PCP) Problem Qualifiers JOSH JORDAN DO May 07, 2021 16:35 FELIPA LOCKHART MD May 07, 2021 18:32
--- NOTE | 2021-05-07 17:00 | RAD ---
INDICATION: Reason: Pain / Spl. Instructions: / History: COMPARISON: January 2018 FINDINGS: Single view of chest obtained. Shunt coursing down the right side of the chest. Cardiac silhouette is similar to prior examination. There is some mild interstitial and groundglass opacities most prominent at the right lower lung IMPRESSION: * Mild interstitial and groundglass opacity most prominent at the right lower lung. Could be from ca uses such as interstitial infiltrate or asymmetric pulmonary vascular congestion. Electronically signed by: Wil Kan MD (05/07/2021 4:58 PM) [id number]
[2021-05-07 17:17] LABS: BASO # 0.1 x10^3/uL (0.0-0.2); BASO % 1 % (0-3); EOS # 0.2 x10^3/uL (0.0-0.7); EOS % 3 % (0-3); HEMATOCRIT 46.4 % (39.0-53.0); HEMOGLOBIN 16.1 g/dL (13.0-17.5); LYMPH # 1.8 x10^3/uL (1.0-4.8); LYMPH % 29 % (24-48); MEAN CORPUSCULAR HEMOGLOBIN 31 pg (25-35); MEAN CORPUSCULAR HGB CONC 35 g/dL (31-37); MEAN CORPUSCULAR VOLUME 90 fL (79-100); MONO # 0.5 x10^3/uL (0.0-1.1); MONO % 8 % (0-9); NEUT # 3.7 x10^3/uL (1.8-7.7); NEUT % 59 % (31-73); PLATELET COUNT 153 x10^3/uL (140-400); RED BLOOD COUNT 5.16 x10^6/uL (4.30-5.70); RED CELL DISTRIBUTION WIDTH 13.1 % (11.5-14.5); WHITE BLOOD COUNT 6.2 x10^3/uL (4.0-11.0)
[2021-05-07 17:26] LABS: CALCIUM 9.3 mg/dL (8.5-10.1); GFR 80.1
[2021-05-07 17:32] LABS: ALBUMIN 3.6 g/dL (3.4-5.0); ALBUMIN/GLOBULIN RATIO 1.2 (1.0-1.7); TOTAL BILIRUBIN 0.7 mg/dL (0.2-1.0); TOTAL PROTEIN 6.6 g/dL (6.4-8.2)
[2021-05-07] MEDS ORDERED: IOHEXOL 350 MG/ML 100 ML VIAL. IV ONE (17:45)
--- NOTE | 2021-05-07 17:58 | EKG ---
[facility] [address] [place] [address] Test Date: 2021-05-07 Test Time: 16:14:31 Pat Name: GINA VALDEZ Department: Room: Gender: M Interpretive Naturalist: : 1975 Requested By: JOSH JORDAN Order Number: [id number] Reading MD: Measurements Intervals [place] Rate: 74 P: -6 VA: 178 QRS: 12 QRSD: 78 T: 16 QT: 362 QTc: 407 Interpretive Statements SINUS RHYTHM NORMAL ECG RI6.01 Compared to ECG 05/07/2021 16:12:22 No significant changes
[2021-05-07] MEDS ORDERED: CONTRAST GIVEN. MC PRN (18:00)
--- NOTE | 2021-05-07 18:16 | RAD ---
EXAMINATION: CTA Chest With IV contrast INDICATION:45 years, Male, shortness of breath. COMPARISON: None. TECHNIQUE: Spiral CTA was obtained from the jugular notch through the posterior costophrenic recess. 3-D MIPS, sagittal and coronal reformats were obtained. Exposure: One or more of the following individualized dose reduction techniques were utilized for thi s examination: 1. Automated exposure control 2. Adjustment of the mA and/or kV according to patient size 3. Use of iterative reconstruction technique. FINDINGS: LUNGS/PLEURA: Central airways are patent. No focal consolidation, pleural effusion or pneumothorax. T here is a 2 mm pulmonary nodule in the left lower lobe (series 3 image 94). Right basilar subsegmenta l atelectasis. Right middle lobe scarring and/or atelectatic changes. MEDIASTINUM: No pathologic mediastinal or hilar adenopathy. The thoracic aorta and pulmonary arteries are normal in caliber. No evidence of pulmonary embolism. The heart is normal in size. No pericardia l effusion. Severe calcified coronary atherosclerosis. The visualized thyroid and the esophagus are u nremarkable. AXILLA/SOFT TISSUE: No supraclavicular or axillary adenopathy. Regional soft tissues are within marcella l limits. UPPER ABDOMEN: The visualized upper abdomen appears unremarkable. BONES: No evidence of acute fractures or aggressive osseous lesions. Multilevel degenerative changes in the spine. IMPRESSION: 1. No evidence of pulmonary embolism. 2. Severe calcified coronary atherosclerosis. 3. A 2 mm pulmonary nodule in the left lower lobe. Fleischner Society guidelines for management of incidental pulmonary nodule (Radiology 2017): Single solid < 6 mm: LOW-RISK patient (minimal or absent history of smoking and other known risk factors): No routine foll ow-up HIGH-RISK patient (history of smoking or other known risk factors): Optional CT at 12 months Electronically signed by: Randee Murray MD (05/07/2021 6:14 PM) [facility]
--- NOTE | 2021-05-07 19:09 | PDOC1 ---
History and Physical Date of Admission Date of Admission DATE: 05/07/21 TIME: 18:57 Identification/Chief Complaint Chief Complaint Chest pain Source Source: Chart review, Patient History of Present Illness History of Present Illness This is a 45-year-old male with past medical history DM2, who presents to the ED with complaints of worsening intermittent chest pain over the past month. He reports chest pain feels more like chest pressure, with associated diaphoresis. States his symptoms are worse with exertion. He saw his PCP today for his concerning symptoms and was sent to the ED for further evaluation. He does note a family history of VA in his father. Labs on admission were largely unremarkable except CBG 293. Initial troponin <0.017. Chest x-ray admission showed mild interstitial and groundglass opacity most prominent at the right lower lung, likely asymmetric pulmonary vascular congestion. CTA chest was negative for PE but did comment on severe calcified coronary atherosclerosis. He received aspirin 324 mg in ED. Will admit patient for further medical management. Past Medical History Past Medical History Carpal tunnel Endocrine: Diabetes Past Surgical History Past Surgical History Cholecystectomy, bilateral carpal tunnel surgery, left wrist surgery, left Achilles tendon repair, CHF shunt Family History Family History VA, CAD Social History Smoke: Quit ALCOHOL: rare Drugs: Marijuana Current Problem List Problem List Problems Medical Problems: (1) Atypical chest pain Status: Acute (2) Dyspnea on exertion Status: Acute (3) Exertional chest pain Status: Acute (4) Hyperglycemia due to diabetes mellitus Status: Acute (5) Person under investigation for COVID-19 Status: Acute Current Medications Current Medications Current Medications Aspirin (Aspirin Chewable) 324 mg 1X ONCE PO Last administered on 05/07/21at 16:47; Start 05/07/21 at 16:30; Stop 05/07/21 at 16:31; Status DC Iohexol (Omnipaque 350 Mg/ml) 100 ml 1X ONCE IV Last administered on 05/07/21at 17:48; Start 05/07/21 at 17:45; Stop 05/07/21 at 17:48; Status DC Info (CONTRAST GIVEN -- Rx MONITORING) 1 each PRN DAILY PRN MC SEE COMMENTS; Start 05/07/21 at 18:00; Stop 05/09/21 at 17:59 Active Scripts Active Azithromycin Tablet (Azithromycin) 250 Mg Tablet 250 Mg PO DAILY 5 Days Augmentin 875-125 Tablet (Amoxicillin/Potassium Clav) 1 Each Tablet 1 Tab PO BID 5 Days Reported Trulicity (Dulaglutide) 0.75 Mg/0.5 Ml Pen.injctr 0.75 Mg SQ WEEKLY saturdays Galliano 5-325 Tablet (Acetaminophen/Hydrocodone Bitart) 1 Each Tablet 1 Tab PO PRN Q6HRS PRN Fiorinal 50-325-40 Mg Capsule (Butalbital/Aspirin/Caffeine) 1 Each Capsule 1 Each PO PRN PRN Cyclobenzaprine Hcl 10 Mg Tablet 1 Tab PO TID PRN PRN Buspirone Hcl 10 Mg Tablet 1 Tab PO BID Propranolol Hcl 20 Mg Tablet 1 Tab PO BID Colestipol Hcl 1 Gm Tablet 1 Gm PO BID Trazodone Hcl 100 Mg Tablet 1 Tab PO QHS Cymbalta (Duloxetine Hcl) 60 Mg Capsule.dr 1 Cap PO BID Topiramate 100 Mg Tablet 1 Tab PO BID Potassium Chloride 10 Meq Tab.sr.24h 10 Meq PO DAILY Dicyclomine Hcl 20 Mg Tablet 1 Tab PO QID Gabapentin 300 Mg Capsule 300 Mg PO TID Celebrex (Celecoxib) 200 Mg Capsule 1 Cap PO DAILY Prazosin Hcl 1 Mg Capsule 1 Cap PO QHS Sucralfate 1 Gm Tablet 1 Tab PO DAILY Nexium Capsule (Esomeprazole Magnesium) 40 Mg Capsule.dr 1 Cap PO DAILY Maxalt (Rizatriptan Benzoate) 10 Mg Tablet 10 Mg PO PRN DAILY PRN Lasix (Furosemide) 20 Mg Tablet 1 Tab PO BID Klonopin (Clonazepam) 0.5 Mg Tablet 2 Tab PO BID Allergies Allergies: Coded Allergies: sumatriptan (Verified Allergy, Intermediate, body pain, 05/07/21) morphine (Verified Allergy, Mild, itching, 05/07/21) ketorolac (Verified Allergy, Unknown, 05/07/21) ROS Review of System GENERAL: No history of weight change, weakness or fevers. Intermittent diaphoresis. SKIN: No bruising, hair changes or rashes. EYES: No blurred, double or loss of vision. NOSE AND THROAT: No history of nosebleeds, hoarseness or sore throat. HEART: Chest pain. Denies palpitations. LUNGS: Denies cough, hemoptysis, wheezing or shortness of breath. GASTROINTESTINAL: Denies nausea, vomiting, abdominal pain. GENITOURINARY: Denies dysuria, frequency, urgency, hematuria. NEUROLOGIC: Denies history of numbness, tingling, tremor or weakness. PSYCHIATRIC: Denies anxiety, denies depression. ENDOCRINE: No history of heat or cold intolerance, polyuria or polydipsia. EXTREMITIES: Denies muscle weakness, joint pain, pain on walking or stiffness. Physical Exam Physical Exam General: Alert, Oriented X3, Cooperative, No acute distress HEENT: PERRLA, EOMI Lungs: Clear to auscultation, Normal air movement Heart: RRR, no murmurs Cardiovascular: S1, S2 Abdomen: Normal bowel sounds, Soft, No tenderness Extremities: 3+ bilateral pedal edema. No clubbing, No cyanosis Skin: No rashes, No significant lesion Neuro: Normal speech, Normal tone, Sensation intact Psych/Mental Status: Mental status NL, Mood NL Vitals Vitals Vital Signs Date Time Temp Pulse Resp B/P (MAP) Pulse Ox O2 Delivery O2 Flow Rate FiO2 05/07/21 16:12 98.4 68 16 128/70 (95) 95 Room Air 98.4 Labs Labs Laboratory Tests Test 05/07/21 17:05 White Blood Count 6.2 x10^3/uL (4.0-11.0) Red Blood Count 5.16 x10^6/uL (4.30-5.70) Hemoglobin 16.1 g/dL (13.0-17.5) Hematocrit 46.4 % (39.0-53.0) Mean Corpuscular Volume 90 fL (79-100) Mean Corpuscular Hemoglobin 31 pg (25-35) Mean Corpuscular Hemoglobin Concent 35 g/dL (31-37) Red Cell Distribution Width 13.1 % (11.5-14.5) Platelet Count 153 x10^3/uL (140-400) Neutrophils (%) (Auto) 59 % (31-73) Lymphocytes (%) (Auto) 29 % (24-48) Monocytes (%) (Auto) 8 % (0-9) Eosinophils (%) (Auto) 3 % (0-3) Basophils (%) (Auto) 1 % (0-3) Neutrophils # (Auto) 3.7 x10^3/uL (1.8-7.7) Lymphocytes # (Auto) 1.8 x10^3/uL (1.0-4.8) Monocytes # (Auto) 0.5 x10^3/uL (0.0-1.1) Eosinophils # (Auto) 0.2 x10^3/uL (0.0-0.7) Basophils # (Auto) 0.1 x10^3/uL (0.0-0.2) Sodium Level 139 mmol/L (136-145) Potassium Level 4.0 mmol/L (3.5-5.1) Chloride Level 102 mmol/L (98-107) Carbon Dioxide Level 26 mmol/L (21-32) Anion Gap 11 (6-14) Blood Urea Nitrogen 12 mg/dL (8-26) Creatinine 1.0 mg/dL (0.7-1.3) Estimated GFR (Cockcroft-Gault) 80.1 BUN/Creatinine Ratio 12 (6-20) Glucose Level 293 mg/dL (70-99) Calcium Level 9.3 mg/dL (8.5-10.1) Total Bilirubin 0.7 mg/dL (0.2-1.0) Aspartate Amino Transf (AST/SGOT) 9 U/L (15-37) Alanine Aminotransferase (ALT/SGPT) 25 U/L (16-63) Alkaline Phosphatase 84 U/L (46-116) Troponin I Quantitative < 0.017 ng/mL (0.000-0.055) PF-Rnn-O-Type Natriuretic Peptide 21 pg/mL (0-124) Total Protein 6.6 g/dL (6.4-8.2) Albumin 3.6 g/dL (3.4-5.0) Albumin/Globulin Ratio 1.2 (1.0-1.7) Lipase 66 U/L (73-393) Laboratory Tests Test 05/07/21 17:05 White Blood Count 6.2 x10^3/uL (4.0-11.0) Red Blood Count 5.16 x10^6/uL (4.30-5.70) Hemoglobin 16.1 g/dL (13.0-17.5) Hematocrit 46.4 % (39.0-53.0) Mean Corpuscular Volume 90 fL (79-100) Mean Corpuscular Hemoglobin 31 pg (25-35) Mean Corpuscular Hemoglobin Concent 35 g/dL (31-37) Red Cell Distribution Width 13.1 % (11.5-14.5) Platelet Count 153 x10^3/uL (140-400) Neutrophils (%) (Auto) 59 % (31-73) Lymphocytes (%) (Auto) 29 % (24-48) Monocytes (%) (Auto) 8 % (0-9) Eosinophils (%) (Auto) 3 % (0-3) Basophils (%) (Auto) 1 % (0-3) Neutrophils # (Auto) 3.7 x10^3/uL (1.8-7.7) Lymphocytes # (Auto) 1.8 x10^3/uL (1.0-4.8) Monocytes # (Auto) 0.5 x10^3/uL (0.0-1.1) Eosinophils # (Auto) 0.2 x10^3/uL (0.0-0.7) Basophils # (Auto) 0.1 x10^3/uL (0.0-0.2) Sodium Level 139 mmol/L (136-145) Potassium Level 4.0 mmol/L (3.5-5.1) Chloride Level 102 mmol/L (98-107) Carbon Dioxide Level 26 mmol/L (21-32) Anion Gap 11 (6-14) Blood Urea Nitrogen 12 mg/dL (8-26) Creatinine 1.0 mg/dL (0.7-1.3) Estimated GFR (Cockcroft-Gault) 80.1 BUN/Creatinine Ratio 12 (6-20) Glucose Level 293 mg/dL (70-99) Calcium Level 9.3 mg/dL (8.5-10.1) Total Bilirubin 0.7 mg/dL (0.2-1.0) Aspartate Amino Transf (AST/SGOT) 9 U/L (15-37) Alanine Aminotransferase (ALT/SGPT) 25 U/L (16-63) Alkaline Phosphatase 84 U/L (46-116) Troponin I Quantitative < 0.017 ng/mL (0.000-0.055) UT-Vbm-G-Type Natriuretic Peptide 21 pg/mL (0-124) Total Protein 6.6 g/dL (6.4-8.2) Albumin 3.6 g/dL (3.4-5.0) Albumin/Globulin Ratio 1.2 (1.0-1.7) Lipase 66 U/L (73-393) Images Images PATIENT: GINA VALDEZ ACCOUNT: [id number] : 1975 LOCATION: ER AGE: 45 SEX: M EXAM STATUS: REG ER ORD. PHYSICIAN: JOSH JORDAN DO REASON: Pain PROCEDURE: PORTABLE CHEST 1V INDICATION: Reason: Pain / Spl. Instructions: / History: COMPARISON: January 2018 FINDINGS: Single view of chest obtained. Shunt coursing down the right side of the chest. Cardiac silhouette is similar to prior examination. There is some mild interstitial and groundglass opacities most prominent at the right lower lung IMPRESSION: * Mild interstitial and groundglass opacity most prominent at the right lower lung. Could be from causes such as interstitial infiltrate or asymmetric pulmonary vascular congestion. PATIENT: GINA VALDEZ ACCOUNT: [id number] : 1975 LOCATION: ER AGE: 45 SEX: M EXAM STATUS: REG ER ORD. PHYSICIAN: JOSH JORDAN DO REASON: SOA PROCEDURE: CT ANGIOGRAPHY CHEST EXAMINATION: CTA Chest With IV contrast INDICATION:45 years, Male, shortness of breath. COMPARISON: None. TECHNIQUE: Spiral CTA was obtained from the jugular notch through the posterior costophrenic recess. 3-D MIPS, sagittal and coronal reformats were obtained. Exposure: One or more of the following individualized dose reduction techniques were utilized for this examination: 1. Automated exposure control 2. Adjustment of the mA and/or kV according to patient size 3. Use of iterative reconstruction technique. FINDINGS: LUNGS/PLEURA: Central airways are patent. No focal consolidation, pleural effusion or pneumothorax. There is a 2 mm pulmonary nodule in the left lower lobe (series 3 image 94). Right basilar subsegmental atelectasis. Right middle lobe scarring and/or atelectatic changes. MEDIASTINUM: No pathologic mediastinal or hilar adenopathy. The thoracic aorta and pulmonary arteries are normal in caliber. No evidence of pulmonary embolism. The heart is normal in size. No pericardial effusion. Severe calcified coronary atherosclerosis. The visualized thyroid and the esophagus are unremarkable. AXILLA/SOFT TISSUE: No supraclavicular or axillary adenopathy. Regional soft tissues are within normal limits. UPPER ABDOMEN: The visualized upper abdomen appears unremarkable. BONES: No evidence of acute fractures or aggressive osseous lesions. Multilevel degenerative changes in the spine. IMPRESSION: 1. No evidence of pulmonary embolism. 2. Severe calcified coronary atherosclerosis. 3. A 2 mm pulmonary nodule in the left lower lobe. Fleischner Society guidelines for management of incidental pulmonary nodule (Radiology 2017): Single solid < 6 mm: LOW-RISK patient (minimal or absent history of smoking and other known risk factors): No routine follow-up HIGH-RISK patient (history of smoking or other known risk factors): Optional CT at 12 months VTE Prophylaxis Ordered VTE Prophylaxis Devices: No VTE Pharmacological Prophylaxi: Yes Assessment/Plan Assessment/Plan Unstable angina Coronary artery disease DM2 with hyperglycemia Plan: Consultation placed to cardiology Initial troponin <0.017. Will continue to trend troponins Will obtain echocardiogram Morphine, nitroglycerin as needed Basal/prandial insulin FEN - Cardiac/ADA diet PPX - Heparin FULL CODE Dispo - inpatient for above Patient names his sister (Darlene Osman) as surrogate decision-maker Justifications for Admission Other Justification JENNIFER RAMIREZ MD May 07, 2021 19:09
[2021-05-07] MEDS ORDERED: fentaNYL PF VIAL 100 MCG/2 ML VIAL IVP PRN (19:15)
[2021-05-07] MEDS ORDERED: DEXTROSE 50% 25 GM / 50ML DISP.SYRIN. IV PRN (19:15)
[2021-05-07] MEDS ORDERED: NITROGLYCERIN SUBLINGUAL 0.4 MG BOTTLE OF 25. SL PRN (19:15)
[2021-05-07 21:00] VITALS: BP 125/79
[2021-05-07] MEDS ORDERED: INSULIN GLARGINE SYRINGE. SQ SCH (21:00)
[2021-05-07] MEDS ORDERED: EMPA25TA PO (21:09)
[2021-05-07] MEDS ORDERED: OMEP40CA7 PO (21:10)
[2021-05-07] MEDS ORDERED: ERGO800010 PO (21:10)
[2021-05-07] MEDS ORDERED: BUSP15TA PO (21:12)
[2021-05-07] MEDS ORDERED: PREG150C PO (21:12)
[2021-05-07] MEDS ORDERED: PRAZ2CAP2 PO (21:13)
[2021-05-07] MEDS ORDERED: LITH450T PO (21:15)
[2021-05-07] MEDS ORDERED: FURO40TA4 PO (21:15)
[2021-05-07] MEDS ORDERED: TRAZ150T49 PO (21:17)
[2021-05-07] MEDS ORDERED: TADA5TAB PO (21:19)
[2021-05-07] MEDS ORDERED: ALPR0.5T PO (21:20)
[2021-05-07] MEDS ORDERED: DULA1.5P SQ (21:21)
[2021-05-07] MEDS: PREGABALIN 75 MG CAPSULE PO SCH (22:16)
[2021-05-07] MEDS: ALPRAZolam 0.5 MG TABLET PO SCH (22:16)
[2021-05-07] MEDS: busPIRone 10 MG TABLET. PO SCH (22:17)
[2021-05-07 22:40] VITALS: BP 96/58
[2021-05-08] VITALS (11 sets, daily range): BP systolic 87–106; BP diastolic 60–74
[2021-05-08] MEDS ORDERED: traZODone 50 MG TABLET. PO SCH
[2021-05-08] MEDS ORDERED: PRAZOSIN 1 MG CAPSULE. PO SCH
[2021-05-08 05:58] LABS: CALCIUM 8.7 mg/dL (8.5-10.1); CREATININE 0.9 mg/dL (0.7-1.3); GFR 90.4; POTASSIUM 3.7 mmol/L (3.5-5.1)
[2021-05-08] MEDS ORDERED: PANTOPRAZOLE 40 MG TABLET.DR. PO SCH (07:30)
[2021-05-08] MEDS: INSULIN LISPRO 300 UNITS/3 ML VIAL. SQ SCH ×3 (08:32→17:00)
--- NOTE | 2021-05-08 08:32 | PDOC ---
[employer] PROGRESS NOTE Date of Service DOS: DATE: 05/08/21 TIME: 08:27 Chief Complaint Chief Complaint Unstable angina Coronary artery disease DM2 with hyperglycemia Plan: Consultation placed to cardiology Initial troponin <0.017. Will continue to trend troponins Will obtain echocardiogram Morphine, nitroglycerin as needed Basal/prandial insulin FEN - Cardiac/ADA diet PPX - Heparin FULL CODE Dispo - inpatient for above Patient names his sister (Darlene Osman) as surrogate decision-maker History of Present Illness History of Present Illness This is a 45-year-old male with past medical history DM2, who presents to the ED with complaints of worsening intermittent chest pain over the past month. He reports chest pain feels more like chest pressure, with associated diaphoresis. States his symptoms are worse with exertion. He saw his PCP today for his concerning symptoms and was sent to the ED for further evaluation. He does note a family history of CA in his father. Labs on admission were largely unremarkable except CBG 293. Initial troponin <0.017. Chest x-ray admission showed mild interstitial and groundglass opacity most prominent at the right lower lung, likely asymmetric pulmonary vascular congestion. CTA chest was negative for PE but did comment on severe calcified coronary atherosclerosis. He received aspirin 324 mg in ED. Will admit patient for further medical management. 05/08/2021: Troponins <0.017x3. Patient currently denies any chest pain. He is scheduled for heart cath today. Will obtain lipid panel. Echocardiogram pending. Depending on results and cardiology impression, may discharge later today or tomorrow. Vitals/I&O Vitals/I&O: Vital Signs Date Time Temp Pulse Resp B/P (MAP) Pulse Ox O2 Delivery O2 Flow Rate FiO2 05/08/21 05:51 97.7 77 18 91/60 (70) 93 Room Air 97.7 05/07/21 22:40 97.0 I & O 05/07/21 05/07/21 05/08/21 15:00 23:00 07:00 Intake Total 0 ml 0 ml Output Total 1200 ml Balance 0 ml -1200 ml Physical Exam General: Alert, Oriented X3, Cooperative Heart: Regular rate Lungs: Clear Abdomen: Soft, No tenderness Extremities: No clubbing, No cyanosis, Other (3+ edema bilateral lower extremities) Skin: No rashes, No breakdown Labs Labs: Laboratory Tests Test 05/07/21 17:05 05/07/21 19:20 05/07/21 21:40 05/08/21 05:30 White Blood Count 6.2 x10^3/uL (4.0-11.0) Red Blood Count 5.16 x10^6/uL (4.30-5.70) Hemoglobin 16.1 g/dL (13.0-17.5) Hematocrit 46.4 % (39.0-53.0) Mean Corpuscular Volume 90 fL (79-100) Mean Corpuscular Hemoglobin 31 pg (25-35) Mean Corpuscular Hemoglobin Concent 35 g/dL (31-37) Red Cell Distribution Width 13.1 % (11.5-14.5) Platelet Count 153 x10^3/uL (140-400) Neutrophils (%) (Auto) 59 % (31-73) Lymphocytes (%) (Auto) 29 % (24-48) Monocytes (%) (Auto) 8 % (0-9) Eosinophils (%) (Auto) 3 % (0-3) Basophils (%) (Auto) 1 % (0-3) Neutrophils # (Auto) 3.7 x10^3/uL (1.8-7.7) Lymphocytes # (Auto) 1.8 x10^3/uL (1.0-4.8) Monocytes # (Auto) 0.5 x10^3/uL (0.0-1.1) Eosinophils # (Auto) 0.2 x10^3/uL (0.0-0.7) Basophils # (Auto) 0.1 x10^3/uL (0.0-0.2) Sodium Level 139 mmol/L (136-145) 141 mmol/L (136-145) Potassium Level 4.0 mmol/L (3.5-5.1) 3.7 mmol/L (3.5-5.1) Chloride Level 102 mmol/L (98-107) 105 mmol/L (98-107) Carbon Dioxide Level 26 mmol/L (21-32) 30 mmol/L (21-32) Anion Gap 11 (6-14) 6 (6-14) Blood Urea Nitrogen 12 mg/dL (8-26) 15 mg/dL (8-26) Creatinine 1.0 mg/dL (0.7-1.3) 0.9 mg/dL (0.7-1.3) Estimated GFR (Cockcroft-Gault) 80.1 90.4 BUN/Creatinine Ratio 12 (6-20) Glucose Level 293 mg/dL (70-99) 266 mg/dL (70-99) Calcium Level 9.3 mg/dL (8.5-10.1) 8.7 mg/dL (8.5-10.1) Total Bilirubin 0.7 mg/dL (0.2-1.0) Aspartate Amino Transf (AST/SGOT) 9 U/L (15-37) Alanine Aminotransferase (ALT/SGPT) 25 U/L (16-63) Alkaline Phosphatase 84 U/L (46-116) Troponin I Quantitative < 0.017 ng/mL (0.000-0.055) < 0.017 ng/mL (0.000-0.055) < 0.017 ng/mL (0.000-0.055) GW-Wpn-U-Type Natriuretic Peptide 21 pg/mL (0-124) Total Protein 6.6 g/dL (6.4-8.2) Albumin 3.6 g/dL (3.4-5.0) Albumin/Globulin Ratio 1.2 (1.0-1.7) Lipase 66 U/L (73-393) Test 05/08/21 07:30 Glucose (Fingerstick) 240 mg/dL (70-99) Assessment and Plan Assessmemt and Plan Problems Medical Problems: (1) Atypical chest pain Status: Acute (2) Dyspnea on exertion Status: Acute (3) Exertional chest pain Status: Acute (4) Hyperglycemia due to diabetes mellitus Status: Acute (5) Person under investigation for COVID-19 Status: Acute Comment Review of Relevant I have reviewed the following items ezequiel (where applicable) has been applied. Medications: Current Medications Medications (Trade) Dose Ordered Sig/Reynaldo Route PRN Reason Start Time Stop Time Status Last Admin Dose Admin Aspirin (Aspirin Chewable) 324 mg 1X ONCE PO 05/07/21 16:30 05/07/21 16:31 DC 05/07/21 16:47 Iohexol (Omnipaque 350 Mg/ml) 100 ml 1X ONCE IV 05/07/21 17:45 05/07/21 17:48 DC 05/07/21 17:48 Insulin Glargine (Lantus Syringe) 15 unit QHS SQ 05/07/21 21:00 05/07/21 20:54 Alprazolam (Xanax) 0.5 mg BID PO 05/08/21 00:00 05/07/21 22:16 Buspirone HCl (Buspar) 15 mg TID PO 05/08/21 00:00 05/07/21 22:17 Prazosin HCl (Minipress) 2 mg HS PO 05/08/21 00:00 05/07/21 22:14 Pregabalin (Lyrica) 150 mg TID PO 05/08/21 00:00 05/07/21 22:16 Trazodone HCl (Desyrel) 150 mg HS PO 05/08/21 00:00 05/07/21 22:16 Justifications for Admission Other Justification JENNIFER RAMIREZ MD May 08, 2021 08:32
[2021-05-08] MEDS: busPIRone 10 MG TABLET. PO SCH ×2 (08:34→14:00)
[2021-05-08] MEDS: PREGABALIN 75 MG CAPSULE PO SCH ×2 (08:35→14:00)
[2021-05-08] MEDS: ALPRAZolam 0.5 MG TABLET PO SCH (08:36)
[2021-05-08] MEDS ORDERED: LITHIUM CARBONATE ER 300 MG TABLET.ER PO SCH (09:00)
[2021-05-08] MEDS ORDERED: FUROSEMIDE 40 MG TABLET. PO SCH (09:00)
[2021-05-08 09:33] LABS: CHOLESTEROL 211 mg/dL (0-200); HDLC 25 mg/dL (40-60); TRIGLYCERIDES 640 mg/dL (0-150)
--- NOTE | 2021-05-08 09:34 | PDOC2 ---
LILIAN GIBSON HOSIERY MENDER 05/08/21 0934: CARDIAC CONSULT DATE OF CONSULT Date of Consult DATE: 05/08/21 TIME: 09:25 REASON FOR CONSULT Reason for Consult: chest pain REFERRING PHYSICIAN Referring Physician: jhonny SOURCE Source: Chart review, Patient HISTORY OF PRESENT ILLNESS HISTORY OF PRESENT ILLNESS This is a pleasant 45 yo male admitted for complains of chest pain. He has been having midchest pressure in the last month and has been increasing and also with ESPARZA. No wheezing, cough, flu like symptoms. No nausea or vomiting. He got really diaphoretic the other day and laid on the floor with chest discomfort. He does not take any BP or cholesterol meds. No ASA. He did not take any medications to relieve his symptoms. No prior covid-19 exposure. He lives alone with his dog. No recent falls or injury. No past VTE nor CAD. PAST MEDICAL HISTORY Cardiovascular: No pertinent hx Pulmonary: Asthma, Pneumonia CENTRAL NERVOUS SYSTEM: Carpal Tunnel Syndrome, Migraine, Other (Hydrocephalu, ? pituitary tumor details unknown) GI: No pertinent hx Heme/Onc: No pertinent hx Hepatobiliary: No pertinent hx Psych: Anxiety Musculoskeletal: Osteoarthritis Rheumatologic: No pertinent hx Infectious disease: No pertinent hx ENT: No pertinent hx Renal/: No pertinent hx Endocrine: Diabetes Dermatology: No pertinent hx PAST SURGICAL HISTORY Past Surgical History: Arthroscopy (right shoulder), Hernia Repair (umbilical), Other (Carpal tunnel syndrome) FAMILY HISTORY Family History: Coronary Artery Disease (Fatherh) SOCIAL HISTORY Smoke: Quit (30 pk yrs) ALCOHOL: none Drugs: Marijuana Lives: Alone CURRENT MEDICATIONS CURRENT MEDICATIONS Current Medications Medications (Trade) Dose Ordered Sig/Reynaldo Route PRN Reason Start Time Stop Time Status Last Admin Dose Admin Aspirin (Aspirin Chewable) 324 mg 1X ONCE PO 05/07/21 16:30 05/07/21 16:31 DC 05/07/21 16:47 Iohexol (Omnipaque 350 Mg/ml) 100 ml 1X ONCE IV 05/07/21 17:45 05/07/21 17:48 DC 05/07/21 17:48 Insulin Glargine (Lantus Syringe) 15 unit QHS SQ 05/07/21 21:00 05/07/21 20:54 Insulin Human Lispro (HumaLOG) 5 units TIDWMEALS SQ 05/08/21 08:00 05/08/21 08:32 Alprazolam (Xanax) 0.5 mg BID PO 05/08/21 00:00 05/08/21 08:36 Furosemide (Lasix) 80 mg DAILY PO 05/08/21 09:00 05/08/21 08:36 Buspirone HCl (Buspar) 15 mg TID PO 05/08/21 00:00 05/08/21 08:34 [place] Carbonate (Lithobid) 900 mg DAILY PO 05/08/21 09:00 05/08/21 08:34 Pantoprazole Sodium (Protonix) 40 mg DAILYAC PO 05/08/21 07:30 05/08/21 08:36 Prazosin HCl (Minipress) 2 mg HS PO 05/08/21 00:00 05/07/21 22:14 Pregabalin (Lyrica) 150 mg TID PO 05/08/21 00:00 05/08/21 08:35 Trazodone HCl (Desyrel) 150 mg HS PO 05/08/21 00:00 05/07/21 22:16 ALLERGIES ALLERGIES: Coded Allergies: ketorolac (Verified Allergy, Intermediate, 05/07/21) morphine (Verified Allergy, Intermediate, itching, 05/07/21) sumatriptan (Verified Allergy, Intermediate, body pain, 05/07/21) ROS Review of System 14 point ROS evaluated with pertinent positives noted per HPI PHYSICAL EXAM General: Alert, Oriented X3, Cooperative, No acute distress HEENT: Atraumatic, Mucous membr. moist/pink Lungs: Clear to auscultation, Normal air movement Heart: Regular rate (SR), Normal S1, Normal S2, No murmurs Abdomen: Soft, No tenderness Extremities: No cyanosis, No edema Skin: No breakdown, No significant lesion Neuro: Normal speech, Sensation intact Psych/Mental Status: Mental status NL, Mood NL MUSCULOSKELETAL: Osteoarthritic changes both hands VITALS/I&O VITALS/I&O: Vital Signs Date Time Temp Pulse Resp B/P (MAP) Pulse Ox O2 Delivery O2 Flow Rate FiO2 05/08/21 07:45 05/08/21 05:51 97.7 77 18 93 Room Air 97.7 05/07/21 22:40 97.0 I & O 05/07/21 05/07/21 05/08/21 15:00 23:00 07:00 Intake Total 0 ml 0 ml Output Total 1200 ml Balance 0 ml -1200 ml LABS Lab: Laboratory Tests Test 05/07/21 17:05 05/07/21 19:20 05/07/21 21:40 05/08/21 05:30 White Blood Count 6.2 x10^3/uL (4.0-11.0) Red Blood Count 5.16 x10^6/uL (4.30-5.70) Hemoglobin 16.1 g/dL (13.0-17.5) Hematocrit 46.4 % (39.0-53.0) Mean Corpuscular Volume 90 fL (79-100) Mean Corpuscular Hemoglobin 31 pg (25-35) Mean Corpuscular Hemoglobin Concent 35 g/dL (31-37) Red Cell Distribution Width 13.1 % (11.5-14.5) Platelet Count 153 x10^3/uL (140-400) Neutrophils (%) (Auto) 59 % (31-73) Lymphocytes (%) (Auto) 29 % (24-48) Monocytes (%) (Auto) 8 % (0-9) Eosinophils (%) (Auto) 3 % (0-3) Basophils (%) (Auto) 1 % (0-3) Neutrophils # (Auto) 3.7 x10^3/uL (1.8-7.7) Lymphocytes # (Auto) 1.8 x10^3/uL (1.0-4.8) Monocytes # (Auto) 0.5 x10^3/uL (0.0-1.1) Eosinophils # (Auto) 0.2 x10^3/uL (0.0-0.7) Basophils # (Auto) 0.1 x10^3/uL (0.0-0.2) Sodium Level 139 mmol/L (136-145) 141 mmol/L (136-145) Potassium Level 4.0 mmol/L (3.5-5.1) 3.7 mmol/L (3.5-5.1) Chloride Level 102 mmol/L (98-107) 105 mmol/L (98-107) Carbon Dioxide Level 26 mmol/L (21-32) 30 mmol/L (21-32) Anion Gap 11 (6-14) 6 (6-14) Blood Urea Nitrogen 12 mg/dL (8-26) 15 mg/dL (8-26) Creatinine 1.0 mg/dL (0.7-1.3) 0.9 mg/dL (0.7-1.3) Estimated GFR (Cockcroft-Gault) 80.1 90.4 BUN/Creatinine Ratio 12 (6-20) Glucose Level 293 mg/dL (70-99) H 266 mg/dL (70-99) H Calcium Level 9.3 mg/dL (8.5-10.1) 8.7 mg/dL (8.5-10.1) Total Bilirubin 0.7 mg/dL (0.2-1.0) Aspartate Amino Transferase (AST) 9 U/L (15-37) L Alanine Aminotransferase (ALT) 25 U/L (16-63) Alkaline Phosphatase 84 U/L (46-116) Troponin I Quantitative < 0.017 ng/mL (0.000-0.055) < 0.017 ng/mL (0.000-0.055) < 0.017 ng/mL (0.000-0.055) TC-Ogi-J-Type Natriuretic Peptide 21 pg/mL (0-124) Total Protein 6.6 g/dL (6.4-8.2) Albumin 3.6 g/dL (3.4-5.0) Albumin/Globulin Ratio 1.2 (1.0-1.7) Lipase 66 U/L (73-393) L Test 05/08/21 07:30 Glucose (Fingerstick) 240 mg/dL (70-99) H Laboratory Tests 05/07/21 17:05 Laboratory Tests 05/07/21 17:05 05/08/21 05:30 ASSESSMENT/PLAN ASSESSMENT/PLAN 1. chest pain: UA features. high pretest probability 2. DM2: per PCP 3. Obesity 4. Family hx of premature CAD 5. Hx of hydrocephalus with GROCERY STOCK CLERK shunt 6. Reported marijuana use Recommendations ASA. IVF. Secondary prevention measures [facility] today, risks and benefits discussed and agreeable to proceed. Awaiting covid-19 PCR TTE, FLP TRACY SMITH MD 05/08/21 1632: CARDIAC CONSULT ASSESSMENT/PLAN ASSESSMENT/PLAN Patient seen and examined I agree with our nurse practitioners assessment and plan as above. Chest pain. Recurrent episodes of exertional chest pain. History of diabetes and a family history of early CAD. Now comfortable. Continue aspirin and fluids. Cardiac catheterization as above. Diabetes mellitus. Continue present treatments as per the primary service. History of hydrocephalus and a GROCERY STOCK CLERK shunt. RAMIRO TOBIAS MD 05/08/211918: LILIAN GIBSON APRN May 08, 2021 09:34 TRACY SMITH MD May 08, 2021 16:32 RAMIRO TOBIAS MD May 08, 2021 19:19
[2021-05-08 09:36] LABS: CHOLESTEROL/HDL RATIO 8.4
[2021-05-08] MEDS ORDERED: IV NORMAL SALINE 1000ML BAG 1,000 ML IV ONE (09:45)
[2021-05-08] MEDS ORDERED: IODIXANOL 320 MG/ML 100 ML VIAL. ONE (11:07)
[2021-05-08] MEDS ORDERED: HEPARIN for ARTERIAL LINE 1,500 ML ONE (11:07)
[2021-05-08] MEDS ORDERED: LIDOCAINE 1% Multi-Dose 20 ML VIAL. ONE (11:11)
--- NOTE | 2021-05-08 11:50 | NUR ---
SS following for discharge planning. SS reviewed pt chart and discussed with pt RN. Pt is from home with spouse and is currently on room air. COVID19 negative. Cardiology following. Pt having left heart cath today. SS will continue to follow for discharge planning. Addendum: 05/08/21 at 1528 by MISTI MONSON SS Cardiology requesting transfer to or [facility] for CTS oversight. SS contacted transfer team, ; fax [phone], and made request for transfer. requesting to view images from senior cytogenetics laboratory director prior to making any decision. Request made to senior cytogenetics laboratory director to cloud all images to . reported that they would contact for further information. contacted [facility] transfer team and was notified that all of there hospitals are on diversion at this time.
[2021-05-08] MEDS ORDERED: fentaNYL PF VIAL 100 MCG/2 ML VIAL ONE (13:45)
[2021-05-08] MEDS ORDERED: MIDAZOLAM HCL/PF 5 MG/5 ML VIAL. ONE (13:45)
--- NOTE | 2021-05-08 13:54 | PDOC ---
MODERATE SEDATION ASSESSMENT RISKS/ALTERNATIVES Risks/Alternatives Risks and alternatives of this type of sedation and procedure discussed with: RISK/ALTERNATIVES: Patient H & P ON CHART H & P H & P on chart and reviewed for co-morbid conditions and appropriate labs. H&P ON CHART: Yes STATUS PREG STATUS ASSESSED: N/A MEDS/ALLERGIES REVIEWED Meds/Allergies Reviewed Medications and Allergies including time and route of recently administered narcotics and sedatives. MEDS/ALLERGIES REVIEWED: Yes ASA RATING ASA RATING: II AIRWAY ASSESSMENT Airway Assessment Airway patency, oral function limitations, presence of caps, crowns, dentures, partials, and ability to extend neck assessed. AIRWAY ASSESSMENT: Yes MALLAMPATI SCORE MALLAMPATI SCORE: II PRE-SEDATION ASSESSMENT PRE-SEDATION ASSESSMENT: Yes TRACY SMITH MD May 08, 2021 13:54
[2021-05-08] MEDS ORDERED: diphenhydrAMINE 50 MG/ML VIAL ONE (14:11)
[2021-05-08] MEDS ORDERED: MIDAZOLAM HCL/PF 5 MG/5 ML VIAL. IV ONE (14:30)
[2021-05-08] MEDS ORDERED: fentaNYL PF VIAL 100 MCG/2 ML VIAL IV ONE (14:30)
[2021-05-08] MEDS ORDERED: LIDOCAINE 1% Multi-Dose 20 ML VIAL. INJ ONE (14:30)
[2021-05-08] MEDS ORDERED: IODIXANOL 320 MG/ML 100 ML VIAL. IART ONE (14:30)
[2021-05-08] MEDS ORDERED: diphenhydrAMINE 50 MG/ML VIAL IVP ONE (14:30)
--- NOTE | 2021-05-08 15:35 | CARD ---
MR#: [id number] Date of Study: 05/08/2021 Ordering Physician: LILIAN GIBSON, Referring Physician: LILIAN GIBSON, Tech: Norberto Villatoro, RT(R)() APPROVED REPORT Procedures Left heart catheterization Selective coronary angiogram Left ventriculogram The patient is a 45-year-old male who was admitted through the emergency room with recurrent episodes of chest discomfort. Initial EKG showed no acute ST segment elevation. Troponin has been normal x3 . A CTA of the chest showed no pulmonary emboli but did show severe calcified coronary atheroscleros is. The patient has a history of diabetes and a family history of early coronary disease. He report edly had a catheterization at approximately 5 years ago but no interventions were performed. In t his setting we recommended cardiac catheterization and possible intervention. Risks and benefits wer e discussed with the patient. He agreed to proceed. After informed consent was obtained the patient was brought to the heart catheterization lab. The ar ea the right femoral artery was prepared in the usual manner with Betadine, sterile draping and local anesthetic. An 18-gauge needle was used to enter the right femoral artery, a wire placed and a 6 Fr ench sheath placed over the wire. Using a J-wire for all catheter exchanges, a 6 Syriac JL4 diagnost ic catheter was used to engage the left coronary system and sequential injections in various views we re obtained. A 6 Syriac Daniel right diagnostic catheter was used to engage the right coronary art nano and sequential injections in various views were obtained. A pigtail catheter was advanced to the left ventricle. Pressures were obtained. A 30 degree [place] left ventriculogram was performed. Pullb ack pressures were measured. Images were reviewed. The patient was found to have a tight extremely calcified proximal LAD lesion. After review of the images it was my opinion the patient should be co nsidered for possible Rotablator treatment. Secondary to this we completed the case. Injection of t he sheath showed normal placement. The sheath was removed and sealed with an Angio-Seal product. Th e patient was moved to the holding area. There were no immediate complications. Findings. Hemodynamics. LV pressure of 118/8/18. Aortic root pressure of 116/76. Coronaries. Left main. The left main was a normal size vessel with no lesions. Left anterior descending. The LAD was a moderate size vessel. It had a proximal to mid heavily calc ified lesion of greater than 95% in its tightest point. It was of moderate length with moderate comp lexity. Left circumflex. The left circumflex was a large dominant vessel. It had no lesions. Right coronary artery the right coronary was a very small nondominant vessel. It had a mid occlusion with distal collateralization. Left ventriculogram. The left ventricle showed intact LV systolic function with slight anterior hypokinesis and an ejectio n fraction of 50% or greater. <Conclusion> Greater than 95% heavily calcified moderately complex LAD lesion. Mid occlusion with distal collateralization of a small right coronary artery. Intact LV systolic function. I believe that the patient should be reviewed for possible Rotablator treatment of his LAD lesion. Moderate sedation time of 38 minutes. Fluoroscopy time of 2.8 minutes Dose of 50 Gycm2 110 mils of contrast. Estimated blood loss of 15 mils All protective equipment and lawson were in place during the procedure. The patient was independently monitored during the procedure. Signed by : Jesu Interiano MD Electronically Approved : 05/08/2021 15:34:53
--- NOTE | 2021-05-08 16:57 | CARD ---
MR#: [id number] Date of Study: 05/08/2021 Ordering Physician: JENNIFER RAMIREZ, Referring Physician: JENNIFER RAMIREZ, Tech: Cris Ortiz [facility] APPROVED REPORT EXAM: Two-dimensional and M-mode echocardiogram with Doppler and color Doppler. Other Information Quality : Technically Limited Rhythm : NSR INDICATION Chest Pain RISK FACTORS Hypertension Obesity 2D DIMENSIONS RVDd3.2 (2.9-3.5cm)Left Atrium(2D)4.0 (1.6-4.0cm) IVSd1.1 (0.7-1.1cm)Aortic Root(2D)4.0 (2.0-3.7cm) LVDd4.1 (3.9-5.9cm)LVOT Diameter2.4 (1.8-2.4cm) PWd1.2 (0.7-1.1cm)LVDs2.5 (2.5-4.0cm) FS (%) 38.9 %SV50.9 ml LVEF(%)69.8 (>50%) Aortic Valve AoV Peak Eric.91.0cm/Amanda Peak GR.3.3mmHg Mitral Valve MV E Qlnkpnrt95.2cm/sMV DECEL [id number] MV A Zycrenmz19.9cm/sE/A Ratio1.0 TDI Lateral E' P. V7.72cm/sMedial E' P. V7.34cm/s E/Lateral E'7.7E/Medial E'8.1 Tricuspid Valve TR P. [id number]/sTR Peak Gr.14mmHg LEFT VENTRICLE The left ventricle is normal size. There is borderline to mild concentric left ventricular hypertroph y. The left ventricular systolic function is normal. Estimated ejection fraction 55-60%. There is no rmal LV segmental wall motion. Transmitral Doppler flow pattern is Grade II-pseudonormal filling millicent mics. RIGHT VENTRICLE The right ventricle is normal size. There is normal right ventricular wall thickness. The right ventr icular systolic function is normal. ATRIA The left atrium size is normal. The right atrium size is normal. The interatrial septum is intact wit h no evidence for an atrial septal defect or patent foramen ovale as noted on 2-D or Doppler imaging. AORTIC VALVE The aortic valve is normal in structure and function. Doppler and Color Flow revealed mild aortic reg urgitation. There is no significant aortic valvular stenosis. MITRAL VALVE The mitral valve is normal in structure and function. There is no evidence of mitral valve prolapse. There is no mitral valve stenosis. Doppler and Color Flow revealed no mitral valve regurgitation note d. TRICUSPID VALVE The tricuspid valve is normal in structure and function. Doppler and Color Flow revealed trace tricus pid regurgitation. There is no tricuspid valve stenosis. PULMONIC VALVE The pulmonary valve is normal in structure and function. Doppler and Color Flow revealed trace pulmon ic valvular regurgitation. GREAT VESSELS The aortic root is normal in size. The ascending aorta is normal in size. The IVC is normal in size a nd collapses >50% with inspiration. PERICARDIAL EFFUSION There is no evidence of significant pericardial effusion. Critical Notification Critical Value: No <Conclusion> The left ventricular systolic function is normal. Estimated ejection fraction 55-60%. There is normal LV segmental wall motion. Transmitral Doppler flow pattern is Grade II-pseudonormal filling dynamics. Mild aortic regurgitation. Trace tricuspid regurgitation. There is no evidence of significant pericardial effusion. Signed by : Sony Li, Electronically Approved : 05/08/2021 16:56:40
[2021-05-08] MEDS ORDERED: ATOR40TA59 PO (17:35)
[2021-05-08] MEDS ORDERED: ASPI-886 PO (17:37)
[2021-05-08] MEDS ORDERED: NITR0.4T24 SL (17:37)
--- NOTE | 2021-05-08 17:39 | SNU/HH DC ---
DISCHARGE ORDERS DISCHARGE INFORMATION: DISCHARGE DATE: May 08, 2021 FINAL DIAGNOSIS Problems Medical Problems: (1) Atypical chest pain Status: Acute (2) Dyspnea on exertion Status: Acute (3) Exertional chest pain Status: Acute (4) Hyperglycemia due to diabetes mellitus Status: Acute (5) Person under investigation for COVID-19 Status: Acute CONDITION ON DISCHARGE: Stable CODE STATUS: Code Status: Full POST DISCHARGE ORDERS: ACTIVITY ORDERS: Activity as tolerated WEIGHT BEARING STATUS: Full weight bearing DIET AFTER DISCHARGE: Cardiac CHECKS AFTER DISCHARGE: CHECKS AFTER DISCHARGE: Check blood press - daily, Check blood sugar, ac/hs DISCHARGE MEDICATIONS: Home Meds Active Scripts Aspirin (ASPIRIN EC) 81 Mg Tablet.dr, 81 MG PO DAILYWBKFT for CAD for 30 Days, #30 TAB.SR Prov:ROSE MCGARRY MD 05/08/21 Nitroglycerin (NITROSTAT) 0.4 Mg Tab.subl, 0.4 MG SL PRN Q5MIN PRN for CHEST PAIN for 30 Days, #30 TAB Prov:ROSE MCGARRY MD 05/08/21 Atorvastatin Calcium (ATORVASTATIN CALCIUM) 40 Mg Tablet, 40 MG PO QHS for HLD for 30 Days, #30 TAB Prov:ROSE MCGARRY MD 05/08/21 Reported Medications Dulaglutide (Trulicity) 1.5 Mg/0.5 Ml Pen.injctr, 1.5 MG SQ WEEKLY for diabetes, EACH 05/07/21 Alprazolam (XANAX) 0.5 Mg Tablet, 1 TAB PO BID for anxiety, #60 TAB 05/07/21 Tadalafil (CIALIS) 5 Mg Tablet, 20 MG PO ONCE PRN for SEE COMMENTS, TAB 05/07/21 Trazodone Hcl (TRAZODONE HCL) 150 Mg Tablet, 150 MG PO HS for sleeping, TAB 05/07/21 Furosemide (FUROSEMIDE) 40 Mg Tablet, 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, TAB 05/07/21 [place] Carbonate (LITHIUM CARBONATE) 450 Mg Tablet.er, 2 TAB PO DAILY for b orderline bipolar, #60 TAB 1 Refill 05/07/21 Prazosin Hcl (PRAZOSIN HCL) 2 Mg Capsule, 2 MG PO HS for night early per pt, CAP 05/07/21 Buspirone Hcl (BUSPIRONE HCL) 15 Mg Tablet, 45 MG PO DAILY for anxiety, TAB 05/07/21 Pregabalin (LYRICA) 150 Mg Capsule, 150 MG PO TID for pain for 30 Days, CAP 0 Refills 05/07/21 Omeprazole (OMEPRAZOLE) 40 Mg Capsule.dr, 1 CAP PO DAILY for gerd, #30 CAP 3 Refills 05/07/21 Ergocalciferol (Vitamin D2) (Ergocalciferol) 200 Mcg/1 Ml Drops, 1250 MCG PO DAILY for vit d, DROP 05/07/21 Empagliflozin (Jardiance) 25 Mg Tablet, 25 MG PO DAILY for diabetes, TAB 05/07/21 ROSE MCGARRY MD May 08, 2021 17:38
[2021-05-08] MEDS ORDERED: ALPRAZolam 0.5 MG TABLET PO PRN (17:45)
--- NOTE | 2021-05-08 18:29 | PDOC3 ---
Discharge Summary Visit Information Date of Admission: May 07, 2021 Date of Discharge: May 08, 2021 Final Diagnosis Problems Medical Problems: (1) Atypical chest pain Status: Acute (2) Dyspnea on exertion Status: Acute (3) Exertional chest pain Status: Acute (4) Hyperglycemia due to diabetes mellitus Status: Acute (5) Person under investigation for COVID-19 Status: Acute Brief Hospital Course Allergies Allergies Coded Allergies Type Severity Reaction Last Updated Verified ketorolac Allergy Intermediate 05/07/21 Yes morphine Allergy Intermediate itching 05/07/21 Yes sumatriptan Allergy Intermediate body pain 05/07/21 Yes Vital Signs Vital Signs Date Time Temp Pulse Resp B/P (MAP) Pulse Ox O2 Delivery O2 Flow Rate FiO2 05/08/21 18:15 96 Room Air 2.0 05/08/21 17:45 98.0 68 20 95/71 (79) 98.0 Lab Results Laboratory Tests Test 05/07/21 17:05 05/07/21 19:20 05/07/21 20:42 05/07/21 21:40 White Blood Count 6.2 x10^3/uL (4.0-11.0) Red Blood Count 5.16 x10^6/uL (4.30-5.70) Hemoglobin 16.1 g/dL (13.0-17.5) Hematocrit 46.4 % (39.0-53.0) Mean Corpuscular Volume 90 fL (79-100) Mean Corpuscular Hemoglobin 31 pg (25-35) Mean Corpuscular Hemoglobin Concent 35 g/dL (31-37) Red Cell Distribution Width 13.1 % (11.5-14.5) Platelet Count 153 x10^3/uL (140-400) Neutrophils (%) (Auto) 59 % (31-73) Lymphocytes (%) (Auto) 29 % (24-48) Monocytes (%) (Auto) 8 % (0-9) Eosinophils (%) (Auto) 3 % (0-3) Basophils (%) (Auto) 1 % (0-3) Neutrophils # (Auto) 3.7 x10^3/uL (1.8-7.7) Lymphocytes # (Auto) 1.8 x10^3/uL (1.0-4.8) Monocytes # (Auto) 0.5 x10^3/uL (0.0-1.1) Eosinophils # (Auto) 0.2 x10^3/uL (0.0-0.7) Basophils # (Auto) 0.1 x10^3/uL (0.0-0.2) Sodium Level 139 mmol/L (136-145) Potassium Level 4.0 mmol/L (3.5-5.1) Chloride Level 102 mmol/L (98-107) Carbon Dioxide Level 26 mmol/L (21-32) Anion Gap 11 (6-14) Blood Urea Nitrogen 12 mg/dL (8-26) Creatinine 1.0 mg/dL (0.7-1.3) Estimated GFR (Cockcroft-Gault) 80.1 BUN/Creatinine Ratio 12 (6-20) Glucose Level 293 mg/dL (70-99) Calcium Level 9.3 mg/dL (8.5-10.1) Total Bilirubin 0.7 mg/dL (0.2-1.0) Aspartate Amino Transf (AST/SGOT) 9 U/L (15-37) Alanine Aminotransferase (ALT/SGPT) 25 U/L (16-63) Alkaline Phosphatase 84 U/L (46-116) Troponin I Quantitative < 0.017 ng/mL (0.000-0.055) < 0.017 ng/mL (0.000-0.055) < 0.017 ng/mL (0.000-0.055) OV-Ahg-R-Type Natriuretic Peptide 21 pg/mL (0-124) Total Protein 6.6 g/dL (6.4-8.2) Albumin 3.6 g/dL (3.4-5.0) Albumin/Globulin Ratio 1.2 (1.0-1.7) Lipase 66 U/L (73-393) SARS-CoV-2 RNA (DARLINE) Negative (Negative) Test 05/08/21 05:30 05/08/21 07:30 05/08/21 11:46 05/08/21 16:52 Sodium Level 141 mmol/L (136-145) Potassium Level 3.7 mmol/L (3.5-5.1) Chloride Level 105 mmol/L (98-107) Carbon Dioxide Level 30 mmol/L (21-32) Anion Gap 6 (6-14) Blood Urea Nitrogen 15 mg/dL (8-26) Creatinine 0.9 mg/dL (0.7-1.3) Estimated GFR (Cockcroft-Gault) 90.4 Glucose Level 266 mg/dL (70-99) Calcium Level 8.7 mg/dL (8.5-10.1) Triglycerides Level 640 mg/dL (0-150) Cholesterol Level 211 mg/dL (0-200) LDL Cholesterol, Calculated mg/dL (0-100) VLDL Cholesterol, Calculated mg/dL (0-40) Non-HDL Cholesterol Calculated 186 mg/dL (0-129) HDL Cholesterol 25 mg/dL (40-60) Cholesterol/HDL Ratio 8.4 Glucose (Fingerstick) 240 mg/dL (70-99) 182 mg/dL (70-99) 229 mg/dL (70-99) Laboratory Tests Test 05/07/21 19:20 05/07/21 20:42 05/07/21 21:40 05/08/21 05:30 Troponin I Quantitative < 0.017 ng/mL (0.000-0.055) < 0.017 ng/mL (0.000-0.055) SARS-CoV-2 RNA (ADRLINE) Negative (Negative) Sodium Level 141 mmol/L (136-145) Potassium Level 3.7 mmol/L (3.5-5.1) Chloride Level 105 mmol/L (98-107) Carbon Dioxide Level 30 mmol/L (21-32) Anion Gap 6 (6-14) Blood Urea Nitrogen 15 mg/dL (8-26) Creatinine 0.9 mg/dL (0.7-1.3) Estimated GFR (Cockcroft-Gault) 90.4 Glucose Level 266 mg/dL (70-99) Calcium Level 8.7 mg/dL (8.5-10.1) Triglycerides Level 640 mg/dL (0-150) Cholesterol Level 211 mg/dL (0-200) LDL Cholesterol, Calculated mg/dL (0-100) VLDL Cholesterol, Calculated mg/dL (0-40) Non-HDL Cholesterol Calculated 186 mg/dL (0-129) HDL Cholesterol 25 mg/dL (40-60) Cholesterol/HDL Ratio 8.4 Test 05/08/21 07:30 05/08/21 11:46 05/08/21 16:52 Glucose (Fingerstick) 240 mg/dL (70-99) 182 mg/dL (70-99) 229 mg/dL (70-99) Brief Hospital Course This is a 45-year-old male with past medical history DM2, who presents to the ED with complaints of worsening intermittent chest pain over the past month. He reports chest pain feels more like chest pressure, with associated diaphoresis. States his symptoms are worse with exertion. He saw his PCP today for his concerning symptoms and was sent to the ED for further evaluation. He does note a family history of MS in his father. Labs on admission were largely unremarkable except CBG 293. Initial troponin <0.017. Chest x-ray admission showed mild interstitial and groundglass opacity most prominent at the right lower lung, likely asymmetric pulmonary vascular congestion. CTA chest was negative for PE but did comment on severe calcified coronary atherosclerosis. He received aspirin 324 mg in ED. Will admit patient for further medical management. 05/08/2021: Troponins <0.017x3. Patient currently denies any chest pain. He is scheduled for heart cath today. Will obtain lipid panel. Echocardiogram pending. Depending on results and cardiology impression, may discharge later today or tomorrow. Heart cath showed greater than 95% heavily calcified moderately complex LAD lesion. Mid occlusion with distal collateralization of a small right coronary artery. Intact LV systolic function. Patient was recommended transfer to for Rotablator treatment of his LAD lesion. Accepted at for further medical management. D/C > 30 min spent. Discharge Information Condition at Discharge: Stable Disposition/Orders: D/C to Another Facility Scheduled Alprazolam (Xanax) 0.5 Mg Tablet, 1 TAB PO BID for anxiety, #60 (Reported) Entered as Reported by: Tam Quintanilla on 05/07/212119 Last Action: Continued on 05/07/212200 by JENNIFER RAMIREZ MD Aspirin (Aspirin Ec) 81 Mg Tablet.dr, 81 MG PO DAILYWBKFT for CAD for 30 Days, #30 Prescribed by: ROSE MCGARRY MD on 05/08/21 1737 Atorvastatin Calcium (Atorvastatin Calcium) 40 Mg Tablet, 40 MG PO QHS for HLD for 30 Days, #30 Prescribed by: ROSE MCGARRY MD on 05/08/21 1735 Buspirone Hcl (Buspirone Hcl) 15 Mg Tablet, 45 MG PO DAILY for anxiety, (Reported) Entered as Reported by: Tam Quintanilla on 05/07/212111 Last Action: Converted on 05/07/212200 by JENNIFER RAMIREZ MD Dulaglutide (Trulicity) 1.5 Mg/0.5 Ml Pen.injctr, 1.5 MG SQ WEEKLY for diabetes, (Reported) Entered as Reported by: Tam Quintanilla on 05/07/212120 Last Action: New Order on 05/07/212120 by Tam Quintanilla Empagliflozin (Jardiance) 25 Mg Tablet, 25 MG PO DAILY for diabetes, (Reported) Entered as Reported by: Tam Quintanilla on 05/07/212108 Last Action: New Order on 05/07/212108 by Tam Quintanilla Ergocalciferol (Vitamin D2) (Ergocalciferol) 200 Mcg/1 Ml Drops, 1,250 MCG PO DAILY for vit d, (Reported) Entered as Reported by: Tam Quintanilla on 05/07/212109 Last Action: New Order on 05/07/212109 by Tam Quintanilla Furosemide (Furosemide) 40 Mg Tablet, 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, (Reported) Entered as Reported by: Tam Quintanilla on 05/07/212114 Last Action: Continued on 05/07/212200 by JENNIFER RAMIREZ MD [place] Carbonate ([place] Carbonate) 450 Mg Tablet.er, 2 TAB PO DAILY for borderline bipolar, #60 Ref 1 (Reported) Entered as Reported by: Tam Quintanilla on 05/07/212114 Last Action: Converted on 05/07/212200 by JENNIFER RAMIREZ MD Omeprazole (Omeprazole) 40 Mg Capsule.dr, 1 CAP PO DAILY for gerd, #30 Ref 3 (Reported) Entered as Reported by: Tam Quintanilla on 05/07/212109 Last Action: Converted on 05/07/212200 by JENNIFER RAMIREZ MD Prazosin Hcl (Prazosin Hcl) 2 Mg Capsule, 2 MG PO HS for night early per pt, (Reported) Entered as Reported by: Tam Quintanilla on 05/07/212112 Last Action: Converted on 05/07/212200 by JENNIFER RAMIREZ MD Pregabalin (Lyrica) 150 Mg Capsule, 150 MG PO TID for pain for 30 Days, Ref 0 (Reported) Entered as Reported by: Tam Quintanilla on 05/07/212111 Last Action: Converted on 05/07/212200 by JENNIFER RAMIREZ MD Trazodone Hcl (Trazodone Hcl) 150 Mg Tablet, 150 MG PO HS for sleeping, (Reported) Entered as Reported by: Tam Quintanilla on 05/07/212116 Last Action: Converted on 05/07/212200 by JENNIFER RAMIREZ MD Scheduled PRN Nitroglycerin (Nitrostat) 0.4 Mg Tab.subl, 0.4 MG SL PRN Q5MIN PRN for CHEST PAIN for 30 Days, #30 Prescribed by: ROSE MCGARRY MD on 05/08/21 1737 Tadalafil (Cialis) 5 Mg Tablet, 20 MG PO ONCE PRN for SEE COMMENTS, (Reported) Entered as Reported by: Tam Quintanilla on 05/07/212118 Last Action: New Order on 05/07/212118 by Tam Quintanilla Justicifation of Admission Dx: Justifications for Admission: Justification of Admission Dx: Yes JENNIFER RAMIREZ MD May 08, 2021 18:29
--- NOTE | 2021-05-08 18:43 | PDOC3 ---
Discharge Summary Visit Information Date of Admission: May 07, 2021 Date of Discharge: May 08, 2021 Admitting Diagnosis: unstable angina Final Diagnosis Problems Medical Problems: (1) Unstable angina Status: Acute (2) Dyspnea on exertion Status: Acute (3) Exertional chest pain Status: Acute (4) Hyperglycemia due to diabetes mellitus Status: Acute Brief Hospital Course Allergies Allergies Coded Allergies Type Severity Reaction Last Updated Verified ketorolac Allergy Intermediate 05/07/21 Yes morphine Allergy Intermediate itching 05/07/21 Yes sumatriptan Allergy Intermediate body pain 05/07/21 Yes Vital Signs Vital Signs Date Time Temp Pulse Resp B/P (MAP) Pulse Ox O2 Delivery O2 Flow Rate FiO2 05/08/21 18:15 96 Room Air 2.0 05/08/21 17:45 98.0 68 20 95/71 (79) 98.0 Lab Results Laboratory Tests Test 05/07/21 17:05 05/07/21 19:20 05/07/21 20:42 05/07/21 21:40 White Blood Count 6.2 x10^3/uL (4.0-11.0) Red Blood Count 5.16 x10^6/uL (4.30-5.70) Hemoglobin 16.1 g/dL (13.0-17.5) Hematocrit 46.4 % (39.0-53.0) Mean Corpuscular Volume 90 fL (79-100) Mean Corpuscular Hemoglobin 31 pg (25-35) Mean Corpuscular Hemoglobin Concent 35 g/dL (31-37) Red Cell Distribution Width 13.1 % (11.5-14.5) Platelet Count 153 x10^3/uL (140-400) Neutrophils (%) (Auto) 59 % (31-73) Lymphocytes (%) (Auto) 29 % (24-48) Monocytes (%) (Auto) 8 % (0-9) Eosinophils (%) (Auto) 3 % (0-3) Basophils (%) (Auto) 1 % (0-3) Neutrophils # (Auto) 3.7 x10^3/uL (1.8-7.7) Lymphocytes # (Auto) 1.8 x10^3/uL (1.0-4.8) Monocytes # (Auto) 0.5 x10^3/uL (0.0-1.1) Eosinophils # (Auto) 0.2 x10^3/uL (0.0-0.7) Basophils # (Auto) 0.1 x10^3/uL (0.0-0.2) Sodium Level 139 mmol/L (136-145) Potassium Level 4.0 mmol/L (3.5-5.1) Chloride Level 102 mmol/L (98-107) Carbon Dioxide Level 26 mmol/L (21-32) Anion Gap 11 (6-14) Blood Urea Nitrogen 12 mg/dL (8-26) Creatinine 1.0 mg/dL (0.7-1.3) Estimated GFR (Cockcroft-Gault) 80.1 BUN/Creatinine Ratio 12 (6-20) Glucose Level 293 mg/dL (70-99) Calcium Level 9.3 mg/dL (8.5-10.1) Total Bilirubin 0.7 mg/dL (0.2-1.0) Aspartate Amino Transf (AST/SGOT) 9 U/L (15-37) Alanine Aminotransferase (ALT/SGPT) 25 U/L (16-63) Alkaline Phosphatase 84 U/L (46-116) Troponin I Quantitative < 0.017 ng/mL (0.000-0.055) < 0.017 ng/mL (0.000-0.055) < 0.017 ng/mL (0.000-0.055) EQ-Sba-N-Type Natriuretic Peptide 21 pg/mL (0-124) Total Protein 6.6 g/dL (6.4-8.2) Albumin 3.6 g/dL (3.4-5.0) Albumin/Globulin Ratio 1.2 (1.0-1.7) Lipase 66 U/L (73-393) SARS-CoV-2 RNA (DARLINE) Negative (Negative) Test 05/08/21 05:30 05/08/21 07:30 05/08/21 11:46 05/08/21 16:52 Sodium Level 141 mmol/L (136-145) Potassium Level 3.7 mmol/L (3.5-5.1) Chloride Level 105 mmol/L (98-107) Carbon Dioxide Level 30 mmol/L (21-32) Anion Gap 6 (6-14) Blood Urea Nitrogen 15 mg/dL (8-26) Creatinine 0.9 mg/dL (0.7-1.3) Estimated GFR (Cockcroft-Gault) 90.4 Glucose Level 266 mg/dL (70-99) Calcium Level 8.7 mg/dL (8.5-10.1) Triglycerides Level 640 mg/dL (0-150) Cholesterol Level 211 mg/dL (0-200) LDL Cholesterol, Calculated mg/dL (0-100) VLDL Cholesterol, Calculated mg/dL (0-40) Non-HDL Cholesterol Calculated 186 mg/dL (0-129) HDL Cholesterol 25 mg/dL (40-60) Cholesterol/HDL Ratio 8.4 Glucose (Fingerstick) 240 mg/dL (70-99) 182 mg/dL (70-99) 229 mg/dL (70-99) Laboratory Tests Test 05/07/21 19:20 05/07/21 20:42 05/07/21 21:40 05/08/21 05:30 Troponin I Quantitative < 0.017 ng/mL (0.000-0.055) < 0.017 ng/mL (0.000-0.055) SARS-CoV-2 RNA (DARLINE) Negative (Negative) Sodium Level 141 mmol/L (136-145) Potassium Level 3.7 mmol/L (3.5-5.1) Chloride Level 105 mmol/L (98-107) Carbon Dioxide Level 30 mmol/L (21-32) Anion Gap 6 (6-14) Blood Urea Nitrogen 15 mg/dL (8-26) Creatinine 0.9 mg/dL (0.7-1.3) Estimated GFR (Cockcroft-Gault) 90.4 Glucose Level 266 mg/dL (70-99) Calcium Level 8.7 mg/dL (8.5-10.1) Triglycerides Level 640 mg/dL (0-150) Cholesterol Level 211 mg/dL (0-200) LDL Cholesterol, Calculated mg/dL (0-100) VLDL Cholesterol, Calculated mg/dL (0-40) Non-HDL Cholesterol Calculated 186 mg/dL (0-129) HDL Cholesterol 25 mg/dL (40-60) Cholesterol/HDL Ratio 8.4 Test 05/08/21 07:30 05/08/21 11:46 05/08/21 16:52 Glucose (Fingerstick) 240 mg/dL (70-99) 182 mg/dL (70-99) 229 mg/dL (70-99) Brief Hospital Course Mr. Noriega is a 45 old male who presented to the ER with a history of episodes of exertional chest pain and increasing ESPARZA. He has a history of DM and a family history of early CAD. His troponin draws were normal. A CT chest scan showed no PE but did show heavily calcified coronary arteries. A cath showed intact LV systolic function with an EF of 50%, a heavily calcified proximal LAD lesion of > 95%, a large dominant LCX with no significant lesions and a small non dominant RCA with a mid occlusion and distal collateralization. The patient remained pain free during and after his procedure. In the setting of his heavily calcified LAD lesion the patient is being transferred to for revascul arization. He is being reviewed by CV surgery and the cardiology services. This was discussed with the patient and his family. Assessment Assessment 1.Unstable angina. Calcified CAD as above. 2. DM. Continuing present medications. Discharge Information Scheduled Alprazolam (Xanax) 0.5 Mg Tablet, 1 TAB PO BID for anxiety, #60 (Reported) Entered as Reported by: Tam Quintanilla on 05/07/212119 Last Action: Continued on 05/07/212200 by JENNIFER RAMIREZ MD Aspirin (Aspirin Ec) 81 Mg Tablet.dr, 81 MG PO DAILYWBKFT for CAD for 30 Days, #30 Prescribed by: ROSE MCGARRY MD on 05/08/21 1737 Atorvastatin Calcium (Atorvastatin Calcium) 40 Mg Tablet, 40 MG PO QHS for HLD for 30 Days, #30 Prescribed by: ROSE MCGARRY MD on 05/08/21 1735 Buspirone Hcl (Buspirone Hcl) 15 Mg Tablet, 45 MG PO DAILY for anxiety, (Reported) Entered as Reported by: Tam Quintanilla on 05/07/212111 Last Action: Converted on 05/07/212200 by JENNIFER RAMIREZ MD Dulaglutide (Trulicity) 1.5 Mg/0.5 Ml Pen.injctr, 1.5 MG SQ WEEKLY for diabetes, (Reported) Entered as Reported by: Tam Quintanilla on 05/07/212120 Last Action: New Order on 05/07/212120 by Tam Quintanilla Empagliflozin (Jardiance) 25 Mg Tablet, 25 MG PO DAILY for diabetes, (Reported) Entered as Reported by: Tam Quintanilla on 05/07/212108 Last Action: New Order on 05/07/212108 by Tam Quintanilla Ergocalciferol (Vitamin D2) (Ergocalciferol) 200 Mcg/1 Ml Drops, 1,250 MCG PO DAILY for vit d, (Reported) Entered as Reported by: Tam Quintanilla on 05/07/212109 Last Action: New Order on 05/07/212109 by Tam Quintanilla Furosemide (Furosemide) 40 Mg Tablet, 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, (Reported) Entered as Reported by: Tam Quintanilla on 05/07/212114 Last Action: Continued on 05/07/212200 by JENNIFER RAMIREZ MD [place] Carbonate ([place] Carbonate) 450 Mg Tablet.er, 2 TAB PO DAILY for borderline bipolar, #60 Ref 1 (Reported) Entered as Reported by: Tam Quintanilla on 05/07/212114 Last Action: Converted on 05/07/212200 by JENNIFER RAMIREZ MD Omeprazole (Omeprazole) 40 Mg Capsule.dr, 1 CAP PO DAILY for gerd, #30 Ref 3 (Reported) Entered as Reported by: Tam Quintanilla on 05/07/212109 Last Action: Converted on 05/07/212200 by JENNIFER RAMIREZ MD Prazosin Hcl (Prazosin Hcl) 2 Mg Capsule, 2 MG PO HS for night early per pt, (Reported) Entered as Reported by: Tam Quintanilla on 05/07/212112 Last Action: Converted on 05/07/212200 by JENNIFER RAMIREZ MD Pregabalin (Lyrica) 150 Mg Capsule, 150 MG PO TID for pain for 30 Days, Ref 0 (Reported) Entered as Reported by: Tam Quintanilla on 05/07/212111 Last Action: Converted on 05/07/212200 by JENNIFER RAMIREZ MD Trazodone Hcl (Trazodone Hcl) 150 Mg Tablet, 150 MG PO HS for sleeping, (Reported) Entered as Reported by: Tam Quintanilla on 05/07/212116 Last Action: Converted on 05/07/212200 by JENNIFER RAMIREZ MD Scheduled PRN Nitroglycerin (Nitrostat) 0.4 Mg Tab.subl, 0.4 MG SL PRN Q5MIN PRN for CHEST PAIN for 30 Days, #30 Prescribed by: ROSE MCGARRY MD on 05/08/21 1737 Tadalafil (Cialis) 5 Mg Tablet, 20 MG PO ONCE PRN for SEE COMMENTS, (Reported) Entered as Reported by: Tam Quintanilla on 05/07/212118 Last Action: New Order on 05/07/212118 by Tam Quintanilla Patient Instructions Patient Instructions The patient is being transferred to on his present medications for revascularization. Justicifation of Admission Dx: Justifications for Admission: Justification of Admission Dx: Yes Angina: Unstable Variant TRACY SMITH MD May 08, 2021 18:43
--- NOTE | 2021-05-08 19:16 | NUR ---
Received a call from Gene at in regards to patient transferring to . Contacted Dr. Jasmine and received discharge orders. Dr. Jackson notified and contacted Gene at to give report. Notified EMS and patient of transfer. Patient transferring [id number]. Contacted Essie SRINIVASAN at and gave report.
--- NOTE | 2021-05-08 19:35 | NUR ---
Pt dc to [facility] per EMS pt sl to rt forearm intact accompanied by mother, pt belongings sent with pt.
[2021-05-08] MEDS ORDERED: ATORVASTATIN CALCIUM 40 MG TABLET. PO SCH (21:00)
[2021-05-09 02:08] LABS: HEMOGLOBIN A1C 8.3 % (4.8-5.6)
[2021-05-09] MEDS ORDERED: ASPIRIN ENTERIC COATED 81 MG TABLET.DR. PO SCH (08:00)
== END 2021-05-08 19:35 | disposition admitted as inpatient to this hospital (09) ==
LOC: ER 16:03 → 6 SOUTH 18:50
PROVIDERS: ADMIT Family Medicine; ATTEND Family Medicine
DX: I25.110 Atherosclerotic heart disease of native coronary artery with unstable angina pectoris (principal); Z20.822 Contact with and (suspected) exposure to COVID-19; E11.65 Type 2 diabetes mellitus with hyperglycemia; E78.5 Hyperlipidemia, unspecified; R42 Dizziness and giddiness; I11.0 Hypertensive heart disease with heart failure; I50.9 Heart failure, unspecified; R91.1 Solitary pulmonary nodule; G43.909 Migraine, unspecified, not intractable, without status migrainosus; E66.9 Obesity, unspecified; F12.90 Cannabis use, unspecified, uncomplicated; F41.9 Anxiety disorder, unspecified; J45.909 Unspecified asthma, uncomplicated; K21.9 Gastro-esophageal reflux disease without esophagitis; Z98.2 Presence of cerebrospinal fluid drainage device; Z79.899 Other long term (current) drug therapy; Z82.49 Family history of ischemic heart disease and other diseases of the circulatory system; Z79.84 Long term (current) use of oral hypoglycemic drugs
CPT/HCPCS: 36415; 71045; 71275; 80048; 80053; 80061; 82962; 83036; 83690; 83880; 84484; 85025; 93005; 93306; 93458; 96361; 96372; 96374; 96375; 96376; 99152; 99153; 99285; C1760; C1769; C1894; G0269; G0378; J1200; J1644; J1815; J2250; J3010; J3490; J7030; Q9967; U0003; U0005; G0379